=== PATIENT | female | born 1985 | race Caucasian/White ===

== ENCOUNTER 2016-10-13 23:36 | Emergency (ER) | payer OTHER ==
[~2016-10-13] VITALS: Ht 162.6 cm; Wt 70.0 kg
[~2016-10-13 23:36] MED LIST: CLON1 PO; LAMO100 PO; LEXA5SOL PO; METH40TA9 PO
[2016-10-13 23:46] VITALS: BP 143/77; PULSE 95; RESP 18; TEMP 98; O2SAT 95
--- NOTE | 2016-10-14 00:42 | PD ---
HPI Chief Complaint: Alcohol/Drug Intoxication Time Seen by Provider: 23:41 Travel History International Travel<30 days: No Contact w/Intl Traveler<30days: No Traveled to known affect area: No History of Present Illness HPI 31-year-old female arrives to the ER by EMS as a Sun affect. She drank alcohol tonight. She states she drinks about one to 2 beers most nights. She reports the nurse that she drinks every other night or so Today she states she drank "too many" drinks, Evidently [place] and two 12 oz beers. She denies drug abuse. At time of interview she has no specific medical complaint. patient states she was raking diet because everyone else does. [facility] Social History Alcohol Use: Yes Tobacco Use: Yes Allergies-Medications (Allergen,Severity, Reaction): Coded Allergies: No Known Allergies (Verified , 10/14/16) Reported Meds & Prescriptions Reported Meds & Active Scripts Active Reported Klonopin (Clonazepam) 1 Mg Tab 1 Mg PO DAILY Lexapro (Escitalopram Oxalate) 10 Mg Tab 10 Mg PO DAILY Lamictal (Lamotrigine) 100 Mg Tab 50 Mg PO BID Methadone (Methadone HCl) 40 Mg Tab 100 Mg PO DAILY Review of Systems Except as stated in HPI: all other systems reviewed are Neg Physical Exam Narrative GENERAL: 31-year-old female resting comfortably on bed, answers questions with clear speech SKIN: Focused skin assessment warm/dry. HEAD: Atraumatic. Normocephalic. EYES: Pupils equal and round. No scleral icterus. No injection or drainage. ENT: No nasal bleeding or discharge. Mucous membranes pink and moist. NECK: Trachea midline. No JVD. CARDIOVASCULAR: Regular rate and rhythm. No murmur appreciated. RESPIRATORY: No accessory muscle use. Clear to auscultation. Breath sounds equal bilaterally. GASTROINTESTINAL: Abdomen soft, non-tender, nondistended. Hepatic and splenic margins not palpable. MUSCULOSKELETAL: No obvious deformities. No clubbing. No cyanosis. No edema. NEUROLOGICAL: Awake and alert. No obvious cranial nerve deficits. Motor grossly within normal limits. Speech consistent with alcohol intoxication PSYCHIATRIC: Alcohol intoxication. Denies drug abuse Data Data Last Documented VS Vital Signs Date Time Temp Pulse Resp B/P Pulse Ox O2 Delivery O2 Flow Rate FiO2 10/14/16 01:11 99 Room Air 10/13/16 23:46 98.0 95 18 143/77 Vital signs review MDM Medical Decision Making Medical Screen Exam Complete: Yes Emergency Medical Condition: Yes Medical Record Reviewed: Yes Differential Diagnosis Alcohol intoxication, polysubstance abuse, toxic alcohol ingestion Narrative Course The patient will be observed here in the ER. When she was initially interviewed at about 1:15 AM she was speaking in clear sentences and had a good memory of the events of the evening. 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 Diagnosis Primary Impression: ALCOHOL USE, UNSPECIFIED WITH INTOXICATION, UNCOMPLICATED Referrals: [facility] day Additional Instructions: You have a choice when it comes to health care, and we are glad that you chose [facility]. Hopefully, we have met your expectations on today's visit. You are welcome to return to [facility] at any time, as we are committed to meeting the health care needs of our community. Med/Other Pt SpecificInfo: No Change to Meds Disposition: 01 DISCHARGE HOME Condition: Stable Herbert Brito MD Oct 14, 2016 00:42
[2016-10-14] MEDS ORDERED: METH40TA PO (00:58)
[2016-10-14] MEDS ORDERED: LEXA10TA PO (00:58)
[2016-10-14] MEDS ORDERED: CLON1 PO (00:58)
[2016-10-14] MEDS ORDERED: LAMO100 PO (00:58)
[2016-10-14 05:19] VITALS: BP 107/60; PULSE 88; RESP 18; TEMP 98.4; O2SAT 98
== END 2016-10-14 09:00 | disposition home or self-care (01) ==
LOC: NEPA 23:36
DX: F10.129 Alcohol abuse with intoxication, unspecified (principal); Z72.0 Tobacco use
CPT/HCPCS: 99284

== ENCOUNTER 2017-04-01 17:04 | Emergency (ER) | payer SELFPAY ==
[~2017-04-01] VITALS: Ht 152.4 cm; Wt 86.7 kg
[~2017-04-01 17:04] MED LIST changes: +LEXA10TA PO; -LEXA5SOL PO; +METH40TA PO; -METH40TA9 PO
[2017-04-01 17:12] VITALS: BP 161/97; PULSE 91; RESP 16; TEMP 98.9; O2SAT 98
--- NOTE | 2017-04-01 18:02 | PD ---
HPI Chief Complaint: Abdominal Pain Time Seen by Provider: 17:32 Travel History International Travel<30 days: No Contact w/Intl Traveler<30days: No Traveled to known affect area: No History of Present Illness HPI patient presented c/o 3 weeks worth of nonspecific complaints such as cough/ runny nose/body aches which have improved but still present and as per the patient "since i'm here, i might as well let you know" HOWEVER, the true new acute complaint for patient is a RLQ ABD PAIN, 02/22, NONRAD, no alleviating/ aggravating factors, denies fever/diarrhea/n/v/ pshx: 2 c sections and btl pmhx: denies all: nkda PFSH Past Medical History Anxiety: Yes (ptsd) Tetanus Vaccination: < 5 Years Influenza Vaccination: No ?: Not LMP: 03/25/17 Tubal Ligation: Yes Past Surgical History Section: Yes (x2) Social History Alcohol Use: Yes (occ) Tobacco Use: Yes (1ppd) Substance Use: No Allergies-Medications (Allergen,Severity, Reaction): Coded Allergies: No Known Allergies (Verified , 04/01/17) Reported Meds & Prescriptions Reported Meds & Active Scripts Active Reported Effexor XR 24 HR (Venlafaxine HCl) 150 Mg Cap 150 Mg PO DAILY Amitriptyline (Amitriptyline HCl) 100 Mg Tab 100 Mg PO HS Lamictal (Lamotrigine) 100 Mg Tab 100 Mg PO DAILY Review of Systems Except as stated in HPI: all other systems reviewed are Neg Gastrointestinal: Positive: Abdominal Pain Physical Exam Narrative GENERAL: SKIN: Warm and dry. HEAD: Atraumatic. Normocephalic. EYES: Pupils equal and round. No scleral icterus. No injection or drainage. ENT: No nasal bleeding or discharge. Mucous membranes pink and moist. NECK: Trachea midline. No JVD. CARDIOVASCULAR: Regular rate and rhythm. RESPIRATORY: No accessory muscle use. Clear to auscultation. Breath sounds equal bilaterally. GASTROINTESTINAL: Abdomen soft, mild ttp over rt adnexal and rt lower quadrant, nondistended. MUSCULOSKELETAL: Extremities without clubbing, cyanosis, or edema. No obvious deformities. NEUROLOGICAL: Awake and alert. No obvious cranial nerve deficits. Motor grossly within normal limits. Five out of 5 muscle strength in the arms and legs. Normal speech. PSYCHIATRIC: Appropriate mood and affect; insight and judgment normal. Data Data Last Documented VS Vital Signs Date Time Temp Pulse Resp B/P (MAP) Pulse Ox O2 Delivery O2 Flow Rate FiO2 04/01/17 18:27 76 18 129/85 (100) 98 Room Air 04/01/17 17:12 98.9 Orders Orders Complete Blood Count With Diff (04/01/17 17:36) Comprehensive Metabolic Panel (04/01/17 17:36) Lipase (04/01/17 17:36) Urinalysis - C+S If Indicated (04/01/17 17:36) Ct Abd/Pel W/O Iv Contrast (04/01/17 17:36) Iv Access Insert/Monitor (04/01/17 17:36) Ecg Monitoring (04/01/17 17:36) Oximetry (04/01/17 17:36) Ed Urine Pregnancytest Poc (04/01/17 17:36) Labs Laboratory Tests Test 04/01/17 17:50 White Blood Count 6.3 TH/MM3 Red Blood Count 4.33 MIL/MM3 Hemoglobin 12.7 GM/DL Hematocrit 37.7 % Mean Corpuscular Volume 87.0 FL Mean Corpuscular Hemoglobin 29.3 PG Mean Corpuscular Hemoglobin Concent 33.7 % Red Cell Distribution Width 13.1 % Platelet Count 241 TH/MM3 Mean Platelet Volume 8.5 FL Neutrophils (%) (Auto) 57.6 % Lymphocytes (%) (Auto) 33.3 % Monocytes (%) (Auto) 7.2 % Eosinophils (%) (Auto) 1.3 % Basophils (%) (Auto) 0.6 % Neutrophils # (Auto) 3.6 TH/MM3 Lymphocytes # (Auto) 2.1 TH/MM3 Monocytes # (Auto) 0.5 TH/MM3 Eosinophils # (Auto) 0.1 TH/MM3 Basophils # (Auto) 0.0 TH/MM3 CBC Comment DIFF FINAL Differential Comment Urine Collection Type CLEAN CATCH Urine Color YELLOW Urine Turbidity CLEAR Urine pH 6.0 Urine Specific [place] 1.012 Urine Protein NEG mg/dL Urine Glucose (UA) NEG mg/dL Urine Ketones NEG mg/dL Urine Occult Blood SMALL Urine Nitrite NEG Urine Bilirubin NEG Urine Leukocyte Esterase MOD Urine RBC 0-3 /hpf Urine WBC 0-2 /hpf Urine Squamous Epithelial Cells 0-5 /hpf Microscopic Urinalysis Comment CULT NOT INDICATED Blood Urea Nitrogen 7 MG/DL Creatinine 0.61 MG/DL Random Glucose 94 MG/DL Total Protein 7.4 GM/DL Albumin 3.2 GM/DL Calcium Level 8.6 MG/DL Alkaline Phosphatase 87 U/L Aspartate Amino Transf (AST/SGOT) 19 U/L Alanine Aminotransferase (ALT/SGPT) 36 U/L Total Bilirubin 0.2 MG/DL Sodium Level 141 MEQ/L Potassium Level 3.9 MEQ/L Chloride Level 109 MEQ/L Carbon Dioxide Level 24.9 MEQ/L Anion Gap 7 MEQ/L Estimat Glomerular Filtration Rate 113 ML/MIN Lipase 537 U/L [facility] Medical Decision Making Medical Screen Exam Complete: Yes Emergency Medical Condition: Yes Medical Record Reviewed: Yes Differential Diagnosis ovarian cyst v appy v ectopic preg v colitis v pancreatitis Narrative Course after thorough evaluation patient was not , no uti on ua, cbc wnl, lft' s normal, electrolytes nl, however minimal elevation of lipase suggestive of early pancreatitis, patients pain is controlled and tolerating po will d/c home...advised to return if uncontrolled pain or uncontrolled vomiting...patient voices understanding. Diagnosis Primary Impression: mild pancreatitis Patient Instructions: Full Liquid Diet (GEN), General Instructions, Pancreatitis (ED) Disposition: 01 DISCHARGE HOME Condition: Stable Kermit Tolbert MD Apr 01, 2017 18:02
[2017-04-01] MEDS ORDERED: LAMO100 PO (18:08)
[2017-04-01] MEDS ORDERED: AMIT100T2 PO (18:08)
[2017-04-01] MEDS ORDERED: EFFE150C PO (18:08)
[2017-04-01 18:10] LABS: BLOOD, URINE SMALL (NEG); GLUCOSE,URINE NEG (NEG); KETONE, URINE NEG (NEG); NITRITE,URINE NEG (NEG)
[2017-04-01 18:14] LABS: METHOD OF COLLECTION CLEAN CATCH; URINE COLOR YELLOW (YELLW/STRAW)
[2017-04-01 18:15] LABS: COMMENT (UR) CULT NOT INDICATED; CULTURE IF INDICATED CULT NOT INDICATED; RBC, URINE 0-3 /hpf (0-3); SQUAMOUS EPITHELIAL CELL URINE 0-5 /hpf (0-5); WBC, URINE 0-2 /hpf (0-5)
[2017-04-01 18:17] LABS: AUTOMATED NEUTROPHIL # 3.6 TH/MM3 (1.8-7.7); BASOPHIL % 0.6 % (0.0-2.0); EOSINOPHIL # 0.1 TH/MM3 (0-0.4); EOSINOPHIL % 1.3 % (0.0-4.0); HEMATOCRIT 37.7 % (35.0-46.0); HEMO FLAGS DIFF FINAL; LYMPH % 33.3 % (9.0-44.0); LYMPHOCYTE # 2.1 TH/MM3 (1.0-4.8); MEAN CORPUSCULAR HEMOGLOBIN 29.3 PG (27.0-34.0); MEAN CORPUSCULAR HGB CONC 33.7 % (32.0-36.0); MONO % 7.2 % (0.0-8.0); NEUT % 57.6 % (16.0-70.0); PLATELET COUNT 241 TH/MM3 (150-450); RED BLOOD COUNT 4.33 MIL/MM3 (4.00-5.30); RED CELL DISTRIBUTION WIDTH 13.1 % (11.6-17.2); WHITE BLOOD COUNT 6.3 TH/MM3 (4.0-11.0)
[2017-04-01 18:20] LABS: CHLORIDE 109 MEQ/L (98-107); POTASSIUM 3.9 MEQ/L (3.5-5.1); SODIUM (NA) 141 MEQ/L (136-145)
[2017-04-01 18:24] LABS: ANION GAP 7 MEQ/L (5-15); BICARBONATE 24.9 MEQ/L (21.0-32.0); BLOOD UREA NITROGEN 7 MG/DL (7-18)
[2017-04-01 18:26] LABS: ALT (GPT) 36 U/L (10-53); AST (GOT) 19 U/L (15-37); GLOMERULAR FILTRATION RATE 113 ML/MIN (>89)
[2017-04-01 18:27] VITALS: BP 129/85; PULSE 76; RESP 18; O2SAT 98
--- NOTE | 2017-04-01 18:27 | RADRPT ---
EXAM DATE/TIME: 04/01/2017 18:14 [place] COMPARISON: No previous studies available for comparison. INDICATIONS : Right lower quadrant pain with nausea. Evaluate for appendicitis. ORAL CONTRAST: No oral contrast ingested. RADIATION DOSE: 18.88 CTDIvol (mGy) MEDICAL HISTORY : None SURGICAL HISTORY : Tubal ligation. section. ENCOUNTER: Initial ACUITY: 2 days PAIN SCALE: 6/10 LOCATION: Right lower quadrant TECHNIQUE: Volumetric scanning of the abdomen and pelvis was performed. Using automated exposure control and ad justment of the mA and/or kV according to patient size, radiation dose was kept as low as reasonably achievable to obtain optimal diagnostic quality images. DICOM format image data is available electro nically for review and comparison. FINDINGS: LOWER LUNGS: The visualized lower lungs are clear. LIVER: Homogeneous density without lesion. Liver measures 21 cm craniocaudal. There is no dilation of the b iliary tree. No calcified gallstones. SPLEEN: Normal size without lesion. PANCREAS: Within normal limits. KIDNEYS: Normal in size and shape. There is no mass, stone, or hydronephrosis. ADRENAL GLANDS: Within normal limits. VASCULAR: There is no aortic aneurysm. BOWEL/MESENTERY: The stomach, small bowel, and colon demonstrate no acute abnormality. There is no free intraperitone al air or fluid. The appendix is well-visualized and appears normal. ABDOMINAL WALL: Within normal limits. RETROPERITONEUM: There is no lymphadenopathy. BLADDER: No wall thickening or mass. REPRODUCTIVE: Within normal limits. INGUINAL: There is no lymphadenopathy or hernia. MUSCULOSKELETAL: Mild joint space narrowing and subchondral sclerosis seen symmetrically of the sacroiliac joints. No erosions are demonstrated. CONCLUSION: 1. No appendicitis or other acute inflammatory changes. 2. Mild nonspecific hepatomegaly. 3. Apparent chronic sacroiliitis changes. Odin Grider MD on April 01, 2017 at 18:22 Board Certified Radiologist. This report was verified electronically.
[2017-04-01 18:28] LABS: TOTAL BILIRUBIN ADULT 0.2 MG/DL (0.2-1.0)
[2017-04-01 18:29] LABS: ALKALINE PHOSPHATASE 87 U/L (45-117)
[2017-04-01] MEDS ORDERED: ZOFR4TAB3 SL (19:04)
[2017-04-01] MEDS ORDERED: PERC10TA27 PO (19:04)
[2017-04-01 19:10] VITALS: BP 144/94; PULSE 80; RESP 18; O2SAT 99
== END 2017-04-01 19:29 | disposition home or self-care (01) ==
LOC: PHED 17:04
DX: K85.90 Acute pancreatitis without necrosis or infection, unspecified (principal); R10.31 Right lower quadrant pain; R05 Cough; M79.1 Myalgia; F17.200 Nicotine dependence, unspecified, uncomplicated; Z86.59 Personal history of other mental and behavioral disorders
CPT/HCPCS: 74176; 80053; 81001; 83690; 84703; 85025

== ENCOUNTER 2017-04-09 16:31 | Emergency (ER) | payer SELFPAY ==
[~2017-04-09] VITALS: Ht 152.4 cm; Wt 87.5 kg
[~2017-04-09 16:31] MED LIST changes: +AMIT100T2 PO; -CLON1 PO; +EFFE150C PO; -LEXA10TA PO; -METH40TA PO; +PERC10TA27 PO; +ZOFR4TAB3 SL
[2017-04-09 16:40] VITALS: PULSE 96; RESP 16; TEMP 98; O2SAT 97
[2017-04-09] MEDS ORDERED: SODIUM CHLOR 0.9% 1000 ML INJ 1,000 ML IV SCH (17:06)
[2017-04-09] MEDS ORDERED: SODIUM CHLORIDE 0.9% FLUSH 10 ML FLUSH IV FLUSH PRN (17:15)
[2017-04-09] MEDS ORDERED: ONDANSETRON HCL 4 MG/2 ML VIAL IVP ONE (17:15)
--- NOTE | 2017-04-09 17:46 | PD ---
HPI Chief Complaint: Abdominal Pain Time Seen by Provider: 16:53 Travel History International Travel<30 days: No Contact w/Intl Traveler<30days: No Traveled to known affect area: No History of Present Illness HPI 31 yo F c/o epigastric abdominal pain with radiation to back. Pt also with low back pain. + Nausea. No cp/sob. Pt denies alcohol. Pt denies drug abuse. She had similar pain about10 days ago, diagnosed as pancreatitis, which at that time was considered most likely 2/2 virus. + Subjective fever. PFSH Past Medical History Anxiety: Yes (ptsd) ?: Not LMP: 2 WEEKS AGO Tubal Ligation: Yes Past Surgical History Section: Yes (x2) Social History Alcohol Use: Yes (occ) Tobacco Use: Yes (1ppd) Substance Use: No Allergies-Medications (Allergen,Severity, Reaction): Coded Allergies: No Known Allergies (Verified , 04/09/17) Reported Meds & Prescriptions Reported Meds & Active Scripts Active Reported Effexor XR 24 HR (Venlafaxine HCl) 150 Mg Cap 150 Mg PO DAILY Amitriptyline (Amitriptyline HCl) 100 Mg Tab 100 Mg PO HS Lamictal (Lamotrigine) 100 Mg Tab 100 Mg PO DAILY Review of Systems Except as stated in HPI: all other systems reviewed are Neg Physical Exam Narrative GENERAL: 31 yo F, WNWD, no acute distress SKIN: Warm and dry. HEAD: Atraumatic. Normocephalic. EYES: Pupils equal and round. No scleral icterus. No injection or drainage. ENT: No nasal bleeding or discharge. Mucous membranes pink and moist. NECK: Trachea midline. No JVD. CARDIOVASCULAR: Regular rate and rhythm. RESPIRATORY: No accessory muscle use. Clear to auscultation. Breath sounds equal bilaterally. GASTROINTESTINAL: Soft. TTP epigastrium. TTP R lower flank and lower back. MUSCULOSKELETAL: Extremities without clubbing, cyanosis, or edema. No obvious deformities. NEUROLOGICAL: Awake and alert. No obvious cranial nerve deficits. Motor grossly within normal limits. Five out of 5 muscle strength in the arms and legs. Normal speech. PSYCHIATRIC: Appropriate mood and affect; insight and judgment normal. Data Data Last Documented VS Vital Signs Date Time Temp Pulse Resp B/P (MAP) Pulse Ox O2 Delivery O2 Flow Rate FiO2 04/09/17 17:55 97 04/09/17 16:40 98.0 96 16 VS reviewed Orders Orders Complete Blood Count With Diff (04/09/17 17:06) Comprehensive Metabolic Panel (04/09/17 17:06) Lipase (04/09/17 17:06) Urinalysis - C+S If Indicated (04/09/17 17:06) Iv Access Insert/Monitor (04/09/17 17:06) Ecg Monitoring (04/09/17 17:06) Oximetry (04/09/17 17:06) Ondansetron Inj (Zofran Inj) (04/09/17 17:15) Sodium Chlor 0.9% 1000 Ml Inj (Ns 1000 M (04/09/17 17:06) Sodium Chloride 0.9% Flush (Ns Flush) (04/09/17 17:15) Ed Urine Pregnancytest Poc (04/09/17 17:06) Hydromorphone Pf Inj (Dilaudid Pf Inj) (04/09/17 18:30) Metronidazole (Flagyl) (04/09/17 18:30) Labs Laboratory Tests Test 04/09/17 17:46 04/09/17 17:50 Urine Color YELLOW Urine Turbidity CLEAR Urine pH 6.5 Urine Specific [place] 1.008 Urine Protein NEG mg/dL Urine Glucose (UA) NEG mg/dL Urine Ketones NEG mg/dL Urine Occult Blood NEG Urine Nitrite NEG Urine Bilirubin NEG Urine Leukocyte Esterase NEG Urine RBC 0-3 /hpf Urine WBC 0-2 /hpf Urine Squamous Epithelial Cells 0-5 /hpf Urine Trichomonas PRESENT Microscopic Urinalysis Comment CULT NOT INDICATED White Blood Count 9.5 TH/MM3 Red Blood Count 4.44 MIL/MM3 Hemoglobin 13.3 GM/DL Hematocrit 38.8 % Mean Corpuscular Volume 87.2 FL Mean Corpuscular Hemoglobin 30.0 PG Mean Corpuscular Hemoglobin Concent 34.4 % Red Cell Distribution Width 13.0 % Platelet Count 211 TH/MM3 Mean Platelet Volume 8.4 FL Neutrophils (%) (Auto) 62.6 % Lymphocytes (%) (Auto) 28.8 % Monocytes (%) (Auto) 5.9 % Eosinophils (%) (Auto) 1.3 % Basophils (%) (Auto) 1.4 % Neutrophils # (Auto) 6.0 TH/MM3 Lymphocytes # (Auto) 2.7 TH/MM3 Monocytes # (Auto) 0.6 TH/MM3 Eosinophils # (Auto) 0.1 TH/MM3 Basophils # (Auto) 0.1 TH/MM3 CBC Comment DIFF FINAL Differential Comment Blood Urea Nitrogen 11 MG/DL Creatinine 0.68 MG/DL Random Glucose 81 MG/DL Total Protein 7.7 GM/DL Albumin 3.3 GM/DL Calcium Level 9.3 MG/DL Alkaline Phosphatase 94 U/L Aspartate Amino Transf (AST/SGOT) 17 U/L Alanine Aminotransferase (ALT/SGPT) 24 U/L Total Bilirubin 0.2 MG/DL Sodium Level 139 MEQ/L Potassium Level 4.4 MEQ/L Chloride Level 105 MEQ/L Carbon Dioxide Level 25.4 MEQ/L Anion Gap 9 MEQ/L Estimat Glomerular Filtration Rate 100 ML/MIN Lipase 321 U/L [facility] Medical Decision Making Medical Screen Exam Complete: Yes Emergency Medical Condition: Yes Medical Record Reviewed: Yes Differential Diagnosis Constipation, Gastritis, Acute Cholecystitis, Biliary Colic, Pancreatitis, K[place] , Hepatitis, Bowel Obstruction, Cystitis, Mesenteric Ischemia, AAA, Appendicitis , Renal Stone/Hydronephrosis, GERD, perforated viscous Narrative Course CBC & BMP Diagram 04/09/17 17:50 Total Protein 7.7, Albumin 3.3 L, Calcium Level 9.3, Alkaline Phosphatase 94, Aspartate Amino Transf (AST/SGOT) 17, Alanine Aminotransferase (ALT/SGPT) 24, Total Bilirubin 0.2 Lipase normal UA: trichomoniasis present 2g Flagyl here [place] precautions discussed Return precautions discussed Diagnosis Primary Impression: Trichomoniasis, unspecified Additional Instructions: You have a choice when it comes to health care, and we are glad that you chose [facility]. Hopefully, we have met your expectations on today's visit. You are welcome to return to [facility] at any time, as we are committed to meeting the health care needs of our community. Med/Other Pt SpecificInfo: No Change to Meds Disposition: 01 DISCHARGE HOME Condition: Stable Herbert Brito MD Apr 09, 2017 17:46
[2017-04-09 17:55] VITALS: O2SAT 97
[2017-04-09 17:56] LABS: BLOOD, URINE NEG (NEG); GLUCOSE,URINE NEG (NEG); KETONE, URINE NEG (NEG); NITRITE,URINE NEG (NEG); PH, URINE 6.5 (5.0-8.5)
[2017-04-09 17:57] LABS: BASOPHIL # 0.1 TH/MM3 (0-0.2); BASOPHIL % 1.4 % (0.0-2.0); EOSINOPHIL # 0.1 TH/MM3 (0-0.4); EOSINOPHIL % 1.3 % (0.0-4.0); HEMATOCRIT 38.8 % (35.0-46.0); HEMO FLAGS DIFF FINAL; LYMPH % 28.8 % (9.0-44.0); LYMPHOCYTE # 2.7 TH/MM3 (1.0-4.8); MEAN CELL VOLUME 87.2 FL (80.0-100.0); MEAN CORPUSCULAR HGB CONC 34.4 % (32.0-36.0); MONO % 5.9 % (0.0-8.0); NEUT % 62.6 % (16.0-70.0); PLATELET COUNT 211 TH/MM3 (150-450); RED BLOOD COUNT 4.44 MIL/MM3 (4.00-5.30); WHITE BLOOD COUNT 9.5 TH/MM3 (4.0-11.0)
[2017-04-09 18:03] LABS: COMMENT (UR) CULT NOT INDICATED; CULTURE IF INDICATED CULT NOT INDICATED; RBC, URINE 0-3 /hpf (0-3); SQUAMOUS EPITHELIAL CELL URINE 0-5 /hpf (0-5); URINE COLOR YELLOW (YELLW/STRAW); WBC, URINE 0-2 /hpf (0-5)
[2017-04-09 18:07] LABS: CHLORIDE 105 MEQ/L (98-107); POTASSIUM 4.4 MEQ/L (3.5-5.1); SODIUM (NA) 139 MEQ/L (136-145)
[2017-04-09 18:11] LABS: ANION GAP 9 MEQ/L (5-15); BICARBONATE 25.4 MEQ/L (21.0-32.0); BLOOD UREA NITROGEN 11 MG/DL (7-18)
[2017-04-09 18:13] LABS: ALT (GPT) 24 U/L (10-53)
[2017-04-09 18:14] LABS: AST (GOT) 17 U/L (15-37); GLOMERULAR FILTRATION RATE 100 ML/MIN (>89)
[2017-04-09 18:15] LABS: TOTAL BILIRUBIN ADULT 0.2 MG/DL (0.2-1.0)
[2017-04-09 18:16] LABS: ALKALINE PHOSPHATASE 94 U/L (45-117)
[2017-04-09] MEDS ORDERED: metroNIDAZOLE 500 MG TAB PO ONE (18:30)
[2017-04-09] MEDS ORDERED: HYDROmorphone HCL PF 1 MG/ML VIAL IV PUSH ONE (18:30)
[2017-04-09 19:02] VITALS: BP 140/88
[2017-04-10] MEDS ORDERED: DICY10 PO (18:26)
[2017-04-10] MEDS ORDERED: PANT20 PO (18:26)
[2017-04-10] MEDS ORDERED: DOXY100C PO (18:26)
== END 2017-04-09 19:08 | disposition home or self-care (01) ==
LOC: PHED 16:31
DX: A59.9 Trichomoniasis, unspecified (principal); F17.200 Nicotine dependence, unspecified, uncomplicated
CPT/HCPCS: 80053; 81001; 83690; 84703; 85025; 96361; 96374; 96375; 99284; J1170; J2405; J7030

== ENCOUNTER 2017-04-10 17:33 | Emergency (ER) | payer SELFPAY ==
[~2017-04-10] VITALS: Ht 152.4 cm; Wt 87.6 kg
[~2017-04-10 17:33] MED LIST changes: -PERC10TA27 PO; -ZOFR4TAB3 SL
[2017-04-10 17:35] VITALS: BP 135/101; PULSE 101; RESP 16; TEMP 98.7; O2SAT 98
[2017-04-10] MEDS ORDERED: DOXY100C PO (18:26)
[2017-04-10] MEDS ORDERED: PANT20 PO (18:26)
[2017-04-10] MEDS ORDERED: DICY10 PO (18:26)
--- NOTE | 2017-04-10 18:26 | PD ---
HPI Chief Complaint: Abdominal Pain Time Seen by Provider: 18:07 Travel History International Travel<30 days: No Contact w/Intl Traveler<30days: No Traveled to known affect area: No History of Present Illness HPI 31-year-old female complains of abdominal pain. Patient states that she has persistent abdominal pain for the past 2 weeks. Patient was seen in emergency room on April 01 and had blood tests and CT scan abdomen and pelvis done at that time. CT scan abdomen and it was negative for acute pathology. CBC within normal limit. Lipase 537. UA was negative. Patient again was seen yesterday in emergency room for abdominal pain. CBC CMP within normal limits. Lipase normalize. UA was positive for Trichomonas. Patient was given Flagyl 2 g by mouth prior to discharge. Patient states that she had persistent pain cramping pain and sharp pain on the right upper quadrant of the abdomen. Patient denies any pain radiation. Patient denies any fever chills. Patient denies any dysuria or frequency. Patient denies any vaginal discharge or bleeding. Patient states that she had persistent pain on the right upper quadrant abdomen since discharge. Patient does not have any local physician for follow-up. Patient denies any nausea vomiting diarrhea. PFSH Past Medical History Anxiety: Yes (ptsd) Diminished Hearing: No Pancreatitis: Yes Influenza Vaccination: No ?: Not LMP: 2 WEEKS AGO Tubal Ligation: Yes Past Surgical History Section: Yes (x2) Social History Alcohol Use: No (denies) Tobacco Use: Yes (1ppd) Substance Use: No Allergies-Medications (Allergen,Severity, Reaction): Coded Allergies: No Known Allergies (Verified , 04/10/17) Reported Meds & Prescriptions Reported Meds & Active Scripts Active Reported Effexor XR 24 HR (Venlafaxine HCl) 150 Mg Cap 150 Mg PO DAILY Amitriptyline (Amitriptyline HCl) 100 Mg Tab 100 Mg PO HS Lamictal (Lamotrigine) 100 Mg Tab 100 Mg PO DAILY Review of Systems General / Constitutional: No: Fever Eyes: No: Visual changes HENT: No: Headaches Cardiovascular: No: Chest Pain or Discomfort Respiratory: No: Shortness of Breath Gastrointestinal: Positive: Abdominal Pain Genitourinary: No: Dysuria Musculoskeletal: No: Pain Skin: No Rash Neurologic: No: Weakness Psychiatric: No: Depression Endocrine: No: Polydipsia Hematologic/Lymphatic: No: Easy Bruising Physical Exam Narrative GENERAL: Well-nourished, well-developed patient. SKIN: Focused skin assessment warm/dry. HEAD: Normocephalic. EYES: No scleral icterus. No injection or drainage. NECK: Supple, trachea midline. No JVD or lymphadenopathy. CARDIOVASCULAR: Regular rate and rhythm without murmurs, gallops, or rubs. RESPIRATORY: Breath sounds equal bilaterally. No accessory muscle use. GASTROINTESTINAL: Abdomen soft, nondistended. Patient has mild tenderness on palpation epigastric, right upper quadrant and right mid abdomen and right lower quadrant the abdomen. No rebound tenderness. No mass. MUSCULOSKELETAL: No cyanosis, or edema. BACK: Nontender without obvious deformity. No CVA tenderness. Neurologic exam normal. Data Data Last Documented VS Vital Signs Date Time Temp Pulse Resp B/P (MAP) Pulse Ox O2 Delivery O2 Flow Rate FiO2 04/10/17 17:35 98.7 101 16 135/101 (112) 98 MDM Medical Decision Making Medical Screen Exam Complete: Yes Emergency Medical Condition: Yes Differential Diagnosis Differential diagnosis including gastritis, PUD, pancreatitis, cholecystitis, colitis, UTI, pyelonephritis, nephrolithiasis, cervicitis, PID. Narrative Course 31-year-old female with persistent abdominal pain. Workup has been negative so far except mild elevation of lipase 2 weeks ago. Patient was treated for Trichomonas yesterday in the ED. Diagnosis Primary Impression: Abdominal pain Qualified Codes: R10.11 - Right upper quadrant pain Patient Instructions: General Instructions Additional Instructions: Take medications as directed. Follow-up with local physician and GI specialist. Return if persistent problem or worse. Med/Other Pt SpecificInfo: Prescription(s) given Scripts Dicyclomine (Bentyl) 10 Mg Cap 10 MG PO TID Y for PAIN SCALE 1 TO 10, #21 CAP 0 Refills Prov: Malik Grove MD 04/10/17 Pantoprazole (Protonix) 20 Mg Tab 20 MG PO DAILY for Reflux, #30 TAB 0 Refills Prov: Malik Grove MD 04/10/17 Doxycycline Hyclate (Doxycycline Hyclate) 100 Mg Cap 100 MG PO BID for Infection, #20 CAP 0 Refills Prov: Malik Grove MD 04/10/17 Disposition: 01 DISCHARGE HOME Condition: Stable Malik Grove MD Apr 10, 2017 18:26
== END 2017-04-10 18:39 | disposition home or self-care (01) ==
LOC: PHED 17:33
DX: R10.11 Right upper quadrant pain (principal); F17.200 Nicotine dependence, unspecified, uncomplicated; Z86.59 Personal history of other mental and behavioral disorders; Z87.19 Personal history of other diseases of the digestive system
CPT/HCPCS: 99284

== ENCOUNTER 2017-04-16 20:07 | Emergency (ER) | payer SELFPAY ==
[~2017-04-16] VITALS: Ht 160 cm; Wt 81.0 kg
[~2017-04-16 20:07] MED LIST changes: +DICY10 PO; +DOXY100C PO; +PANT20 PO
[2017-04-16 20:09] VITALS: BP 159/94; PULSE 101; RESP 16; TEMP 97.7; O2SAT 96
--- NOTE | 2017-04-16 22:42 | PD ---
HPI Chief Complaint: Anxiety Time Seen by Provider: 22:34 Travel History International Travel<30 days: No Contact w/Intl Traveler<30days: No Traveled to known affect area: No History of Present Illness HPI 31-year-old female with history of PTSD presents for evaluation of anxiety. For the past 3 days she has had increased anxiety and difficulty sleeping. She reports that she is currently prescribed Effexor, lamotrigine and amitriptyline by her psychiatrist Dr. Gomes that [facility]. She reports the last month she was on Risperdal briefly but she was having tardive dyskinesia and this was discontinued. She is here today in an effort to get some help with her anxiety and difficulty sleeping. She denies any suicidal or homicidal ideation, auditory or visual hallucination, drug abuse. She has no other medical complaints at this time. PFSH Past Medical History Anxiety: Yes (ptsd) Diminished Hearing: No Immunizations Current: Yes Pancreatitis: Yes Tetanus Vaccination: < 5 Years Influenza Vaccination: No ?: Unknown Tubal Ligation: Yes Past Surgical History Section: Yes (x2) Social History Alcohol Use: No (denies) Tobacco Use: Yes (1ppd) Substance Use: No Allergies-Medications (Allergen,Severity, Reaction): Coded Allergies: No Known Allergies (Verified , 04/16/17) Reported Meds & Prescriptions Reported Meds & Active Scripts Active Bentyl (Dicyclomine HCl) 10 Mg Cap 10 Mg PO TID PRN Protonix (Pantoprazole Sodium) 20 Mg Tab 20 Mg PO DAILY Doxycycline Hyclate 100 Mg Cap 100 Mg PO BID Reported Effexor XR 24 HR (Venlafaxine HCl) 150 Mg Cap 150 Mg PO DAILY Amitriptyline (Amitriptyline HCl) 100 Mg Tab 100 Mg PO HS Lamictal (Lamotrigine) 100 Mg Tab 100 Mg PO DAILY Review of Systems Except as stated in HPI: all other systems reviewed are Neg Physical Exam Narrative GENERAL: Well-developed well-nourished female in no acute distress answering questions appropriately. Her vital signs have been reviewed. SKIN: Warm and dry. HEAD: Atraumatic. Normocephalic. EYES: Pupils equal and round. No scleral icterus. No injection or drainage. ENT: No nasal bleeding or discharge. Mucous membranes pink and moist. NECK: Trachea midline. No JVD. CARDIOVASCULAR: Regular rate and rhythm. No murmur appreciated. RESPIRATORY: No accessory muscle use. Clear to auscultation. Breath sounds equal bilaterally. GASTROINTESTINAL: Abdomen soft, non-tender, nondistended. Hepatic and splenic margins not palpable. MUSCULOSKELETAL: No obvious deformities. No clubbing. No cyanosis. No edema. NEUROLOGICAL: Awake and alert. No obvious cranial nerve deficits. Motor grossly within normal limits. Normal speech. PSYCHIATRIC: Appropriate mood and affect; insight and judgment normal. Data Data Last Documented VS Vital Signs Date Time Temp Pulse Resp B/P (MAP) Pulse Ox O2 Delivery O2 Flow Rate FiO2 04/16/17 20:09 97.7 101 16 159/94 (115) 96 Room Air Orders Orders Hydroxyzine Hcl Inj (Vistaril Inj) (04/16/17 22:45) [facility] Medical Decision Making Medical Screen Exam Complete: Yes Emergency Medical Condition: Yes Medical Record Reviewed: Yes Differential Diagnosis Insomnia, anxiety, adjustment reaction, PTSD Narrative Course 31-year-old female history of PTSD presents with difficulty sleeping and anxiety for the past 3 days. The patient reports that she is able to get a follow-up appointment with Dr. Crane at [facility] in the morning and she is primarily here requesting something to help her sleep. The plan at this time would be to provide the patient a dose of Vistaril and have her follow-up with her psychiatrist in the morning. She is stable for discharge. Diagnosis Primary Impression: Anxiety Referrals: [facility] Additional Instructions: Follow-up with your psychiatrist tomorrow as discussed. Return for any acutely new or worsening symptoms. Med/Other Pt SpecificInfo: No Change to Meds Disposition: 01 DISCHARGE HOME Condition: Stable Dieter Rendon Apr 16, 2017 22:42
[2017-04-16] MEDS ORDERED: hydrOXYzine HCL 50 MG/ML VIAL IM ONE (22:45)
[2017-04-16 22:57] VITALS: BP 149/79; TEMP 98.1
== END 2017-04-16 22:57 | disposition home or self-care (01) ==
LOC: NEPD 20:07
DX: F43.10 Post-traumatic stress disorder, unspecified (principal); K85.90 Acute pancreatitis without necrosis or infection, unspecified; F17.200 Nicotine dependence, unspecified, uncomplicated; Z79.899 Other long term (current) drug therapy
CPT/HCPCS: 96372; 99284; J3410

== ENCOUNTER 2017-04-17 14:50 | Emergency (ER) | payer OTHER ==
[~2017-04-17] VITALS: Ht 152.4 cm; Wt 81.5 kg
[2017-04-17 15:14] VITALS: BP 135/74; PULSE 90; RESP 16; TEMP 98.9; O2SAT 99
[2017-04-17 15:44] LABS: AUTOMATED NEUTROPHIL # 4.7 TH/MM3 (1.8-7.7); BASOPHIL % 0.6 % (0.0-2.0); EOSINOPHIL # 0.1 TH/MM3 (0-0.4); EOSINOPHIL % 1.5 % (0.0-4.0); HEMATOCRIT 37.4 % (35.0-46.0); HEMO FLAGS DIFF FINAL; LYMPH % 30.2 % (9.0-44.0); LYMPHOCYTE # 2.3 TH/MM3 (1.0-4.8); MEAN CELL VOLUME 87.4 FL (80.0-100.0); MEAN CORPUSCULAR HEMOGLOBIN 29.8 PG (27.0-34.0); MEAN CORPUSCULAR HGB CONC 34.1 % (32.0-36.0); MONO % 6.7 % (0.0-8.0); PLATELET COUNT 239 TH/MM3 (150-450); RED BLOOD COUNT 4.28 MIL/MM3 (4.00-5.30); RED CELL DISTRIBUTION WIDTH 14.1 % (11.6-17.2); WHITE BLOOD COUNT 7.7 TH/MM3 (4.0-11.0)
[2017-04-17 15:49] LABS: BLOOD, URINE NEG (NEG); COMMENT (UR) CULT NOT INDICATED; CULTURE IF INDICATED CULT NOT INDICATED; GLUCOSE,URINE NEG (NEG); KETONE, URINE NEG (NEG); NITRITE,URINE NEG (NEG); PH, URINE 5.5 (5.0-8.5); SQUAMOUS EPITHELIAL CELL URINE 1 /hpf (0-5); URINE COLOR YELLOW (YELLW/STRAW)
[2017-04-17 16:09] LABS: ALT (GPT) 23 U/L (10-53); ANION GAP 7 MEQ/L (5-15); AST (GOT) 14 U/L (15-37); BICARBONATE 24.9 MEQ/L (21.0-32.0); BLOOD UREA NITROGEN 9 MG/DL (7-18); CHLORIDE 107 MEQ/L (98-107); GLOMERULAR FILTRATION RATE 86 ML/MIN (>89); POTASSIUM 4.1 MEQ/L (3.5-5.1); SODIUM (NA) 139 MEQ/L (136-145)
[2017-04-17 16:11] LABS: ALKALINE PHOSPHATASE 94 U/L (45-117); TOTAL BILIRUBIN ADULT 0.3 MG/DL (0.2-1.0)
--- NOTE | 2017-04-17 16:14 | PD ---
HPI Chief Complaint: Psychiatric Symptoms Time Seen by Provider: 15:41 Travel History International Travel<30 days: No Contact w/Intl Traveler<30days: No Traveled to known affect area: No History of Present Illness HPI 31-year-old female that presents to the ED for evaluation of psych. Patient was Lianna acted by her psychiatrist. Patient was seen at [facility] today and was Lianna cobb. Patient comes here because his been suicidal and thinking about overdosing. She has a history of PTSD and was seen here yesterday for anxiety. Per patient she wanted to go see her doctor instead of staying here overnight. She denies any drug abuse or alcohol abuse recently. No allergies to medication. No chest pain or shortness of breath. No fevers chills or sweats. No urinary or bowel movement issues. Patient states that she is compliant with her medications but she believes that they're not working for her. Patient states that the symptoms have been ongoing for a couple days and have worsened secondary to stressors. PFSH Past Medical History Anxiety: Yes (ptsd) Diminished Hearing: No Immunizations Current: Yes Pancreatitis: Yes Tetanus Vaccination: < 5 Years ?: Not Tubal Ligation: Yes Past Surgical History Section: Yes (x2) Social History Alcohol Use: No (denies) Tobacco Use: Yes (1ppd) Substance Use: No Allergies-Medications (Allergen,Severity, Reaction): Coded Allergies: No Known Allergies (Verified , 04/17/17) Reported Meds & Prescriptions Reported Meds & Active Scripts Active Bentyl (Dicyclomine HCl) 10 Mg Cap 10 Mg PO TID PRN Protonix (Pantoprazole Sodium) 20 Mg Tab 20 Mg PO DAILY Doxycycline Hyclate 100 Mg Cap 100 Mg PO BID Reported Effexor XR 24 HR (Venlafaxine HCl) 150 Mg Cap 150 Mg PO DAILY Amitriptyline (Amitriptyline HCl) 100 Mg Tab 100 Mg PO HS Lamictal (Lamotrigine) 100 Mg Tab 100 Mg PO DAILY Review of Systems Except as stated in HPI: all other systems reviewed are Neg Physical Exam Narrative GENERAL: SKIN: Warm and dry. HEAD: Atraumatic. Normocephalic. EYES: Pupils equal and round. No scleral icterus. No injection or drainage. ENT: No nasal bleeding or discharge. Mucous membranes pink and moist. Tongue is midline. No uvula deviation. NECK: Trachea midline. No JVD. CARDIOVASCULAR: Regular rate and rhythm. RESPIRATORY: No accessory muscle use. Clear to auscultation. Breath sounds equal bilaterally. GASTROINTESTINAL: Abdomen soft, non-tender, nondistended. Hepatic and splenic margins not palpable. MUSCULOSKELETAL: Extremities without clubbing, cyanosis, or edema. No obvious deformities. Full range of motion of the upper and lower extremities bilaterally. 2+ pulses bilaterally. NEUROLOGICAL: Awake and alert. No obvious cranial nerve deficits. Motor grossly within normal limits. Five out of 5 muscle strength in the arms and legs. Normal speech. PSYCHIATRIC: Anxious mood and affect; insight and judgment normal. Data Data Last Documented VS Vital Signs Date Time Temp Pulse Resp B/P (MAP) Pulse Ox O2 Delivery O2 Flow Rate FiO2 04/17/17 15:14 98.9 90 16 135/74 (94) 99 Orders Orders Complete Blood Count With Diff (04/17/17 15:25) Comprehensive Metabolic Panel (04/17/17 15:25) Urinalysis - C+S If Indicated (04/17/17 15:25) Psych Screen (04/17/17 15:25) Drug Screen, Random Urine (04/17/17 15:25) Labs Laboratory Tests Test 04/17/17 15:30 White Blood Count 7.7 TH/MM3 Red Blood Count 4.28 MIL/MM3 Hemoglobin 12.8 GM/DL Hematocrit 37.4 % Mean Corpuscular Volume 87.4 FL Mean Corpuscular Hemoglobin 29.8 PG Mean Corpuscular Hemoglobin Concent 34.1 % Red Cell Distribution Width 14.1 % Platelet Count 239 TH/MM3 Mean Platelet Volume 8.6 FL Neutrophils (%) (Auto) 61.0 % Lymphocytes (%) (Auto) 30.2 % Monocytes (%) (Auto) 6.7 % Eosinophils (%) (Auto) 1.5 % Basophils (%) (Auto) 0.6 % Neutrophils # (Auto) 4.7 TH/MM3 Lymphocytes # (Auto) 2.3 TH/MM3 Monocytes # (Auto) 0.5 TH/MM3 Eosinophils # (Auto) 0.1 TH/MM3 Basophils # (Auto) 0.0 TH/MM3 CBC Comment DIFF FINAL Differential Comment Urine Color YELLOW Urine Turbidity CLEAR Urine pH 5.5 Urine Specific [place] 1.018 Urine Protein NEG mg/dL Urine Glucose (UA) NEG mg/dL Urine Ketones NEG mg/dL Urine Occult Blood NEG Urine Nitrite NEG Urine Bilirubin NEG Urine Urobilinogen LESS THAN 2.0 MG/DL Urine Leukocyte Esterase NEG Urine RBC 1 /hpf Urine Squamous Epithelial Cells 1 /hpf Microscopic Urinalysis Comment CULT NOT INDICATED Blood Urea Nitrogen 9 MG/DL Creatinine 0.77 MG/DL Random Glucose 88 MG/DL Albumin 3.4 GM/DL Calcium Level 8.8 MG/DL Aspartate Amino Transf (AST/SGOT) 14 U/L Alanine Aminotransferase (ALT/SGPT) 23 U/L Sodium Level 139 MEQ/L Potassium Level 4.1 MEQ/L Chloride Level 107 MEQ/L Carbon Dioxide Level 24.9 MEQ/L Anion Gap 7 MEQ/L Estimat Glomerular Filtration Rate 86 ML/MIN Urine Opiates Screen NEG Urine Barbiturates Screen NEG Urine Amphetamines Screen NEG Urine Benzodiazepines Screen POS Urine Cocaine Screen POS Urine Cannabinoids Screen NEG MDM Medical Decision Making Medical Screen Exam Complete: Yes Emergency Medical Condition: Yes Medical Record Reviewed: Yes Interpretation(s) CBC & BMP Diagram 04/17/17 15:30 Total Protein 7.7, Albumin 3.4, Calcium Level 8.8, Alkaline Phosphatase 94, Aspartate Amino Transf (AST/SGOT) 14 L, Alanine Aminotransferase (ALT/SGPT) 23, Total Bilirubin 0.3 tox positive for cocaine and benzos Differential Diagnosis Depression versus suicidal ideation versus anxiety versus adjustment disorder versus mood disorder versus bipolar disorder versus schizophrenia versus paranoid disorder versus psychosis versus substance abuse versus alcohol abuse versus alcohol induced psychosis versus homicidality addition versus cutting versus personality disorder Narrative Course 31-year-old female that presents to the ED for evaluation of psych. Patient was properly examined and was found to have signs and symptoms consistent with psychiatric illness. No sign of acute medical distress. Labs were drawn. Patient was medically cleared. Okay to be seen by psych. Mental health screening was discussed with the patient. Diagnosis Primary Impression: PTSD (post-traumatic stress disorder) Ajith Montalvo Apr 17, 2017 16:14
[2017-04-17 18:02] VITALS: BP 125/68; PULSE 78; RESP 20; O2SAT 99
[2017-04-17 19:29] VITALS: BP 137/77; PULSE 101; RESP 18; TEMP 97.6; O2SAT 98
[2017-04-17 22:05] VITALS: BP 138/82; PULSE 62; RESP 19; O2SAT 96
[2017-04-18 02:13] VITALS: BP 157/93; PULSE 85; RESP 19; O2SAT 96
[2017-04-18 06:15] VITALS: BP 156/84; PULSE 80; RESP 18; O2SAT 97
--- NOTE | 2017-04-18 11:57 | PD ---
Physical Exam Time Seen by Provider: 11:56 SILVANO Simeon has evaluated the patient, listed Dsouza act and the patient will be discharged home. Data Data Last Documented VS Vital Signs Date Time Temp Pulse Resp B/P (MAP) Pulse Ox O2 Delivery O2 Flow Rate FiO2 04/18/17 06:15 80 18 156/84 (108) 97 Room Air 04/17/17 19:29 97.6 Orders Orders Complete Blood Count With Diff (04/17/17 15:25) Comprehensive Metabolic Panel (04/17/17 15:25) Urinalysis - C+S If Indicated (04/17/17 15:25) Psych Screen (04/17/17 15:25) Drug Screen, Random Urine (04/17/17 15:25) Diet Regular Basic (04/17/17 Dinner) Diet Regular Basic (04/18/17 Breakfast) Diet Regular Basic (04/18/17 Lunch) Labs Laboratory Tests Test 04/17/17 15:30 White Blood Count 7.7 TH/MM3 Red Blood Count 4.28 MIL/MM3 Hemoglobin 12.8 GM/DL Hematocrit 37.4 % Mean Corpuscular Volume 87.4 FL Mean Corpuscular Hemoglobin 29.8 PG Mean Corpuscular Hemoglobin Concent 34.1 % Red Cell Distribution Width 14.1 % Platelet Count 239 TH/MM3 Mean Platelet Volume 8.6 FL Neutrophils (%) (Auto) 61.0 % Lymphocytes (%) (Auto) 30.2 % Monocytes (%) (Auto) 6.7 % Eosinophils (%) (Auto) 1.5 % Basophils (%) (Auto) 0.6 % Neutrophils # (Auto) 4.7 TH/MM3 Lymphocytes # (Auto) 2.3 TH/MM3 Monocytes # (Auto) 0.5 TH/MM3 Eosinophils # (Auto) 0.1 TH/MM3 Basophils # (Auto) 0.0 TH/MM3 CBC Comment DIFF FINAL Differential Comment Urine Color YELLOW Urine Turbidity CLEAR Urine pH 5.5 Urine Specific [place] 1.018 Urine Protein NEG mg/dL Urine Glucose (UA) NEG mg/dL Urine Ketones NEG mg/dL Urine Occult Blood NEG Urine Nitrite NEG Urine Bilirubin NEG Urine Urobilinogen LESS THAN 2.0 MG/DL Urine Leukocyte Esterase NEG Urine RBC 1 /hpf Urine Squamous Epithelial Cells 1 /hpf Microscopic Urinalysis Comment CULT NOT INDICATED Blood Urea Nitrogen 9 MG/DL Creatinine 0.77 MG/DL Random Glucose 88 MG/DL Total Protein 7.7 GM/DL Albumin 3.4 GM/DL Calcium Level 8.8 MG/DL Alkaline Phosphatase 94 U/L Aspartate Amino Transf (AST/SGOT) 14 U/L Alanine Aminotransferase (ALT/SGPT) 23 U/L Total Bilirubin 0.3 MG/DL Sodium Level 139 MEQ/L Potassium Level 4.1 MEQ/L Chloride Level 107 MEQ/L Carbon Dioxide Level 24.9 MEQ/L Anion Gap 7 MEQ/L Estimat Glomerular Filtration Rate 86 ML/MIN Urine Opiates Screen NEG Urine Barbiturates Screen NEG Urine Amphetamines Screen NEG Urine Benzodiazepines Screen POS Urine Cocaine Screen POS Urine Cannabinoids Screen NEG MDM Supervised Visit with ARNOLD: No Narrative Course SILVANO Jacobs has evaluated the patient, lifted the Dsouza act and the patient will be discharged home. Patient contracts safety. Denies suicidal or homicidal ideations. Patient will be provided community resource packet to / [facility] for follow-up. Patient sees psychiatry and will follow up outpatient. Has friends and family for support. Patient is medically cleared for discharge. Diagnosis Primary Impression: PTSD (post-traumatic stress disorder) Referrals: [facility] (Out patient) call for appointment Primary Care Physician [facility] Patient Instructions: General Instructions, Post Traumatic Stress Disorder (ED) , Polysubstance Abuse (ED) Departure Forms: Tests/Procedures Additional Instruction: Contract safety to your self and others Follow-up with psychiatry Follow-up with primary care provider Follow-up with Kof[facility] Return to the emergency department immediately with worsening of symptoms Med/Other Pt SpecificInfo: No Meds Exist/No RX given Disposition: 01 DISCHARGE HOME Condition: Stable Kelsey Chambers Apr 18, 2017 11:57
--- NOTE | 2017-04-18 11:58 | PD ---
History of Present Illness Chief Complaint: Psychiatric Symptoms Time Seen by Provider: 11:30 Travel History International Travel<30 Days: No Contact w/Intl Traveler<30days: No Known affected area: No Legal Status Legal Status: Dsouza Act Dsouza Act Signed By: Lianna Act Comment: [facility] SILVANO Camp History of Present Illness: History of Present Illness HPI 31-year-old female with history of PTSD and substance use disorder who presents to the ED under Dsouza act initiated by SILVANO Camp from [facility] for psychiatric evaluation. The Dsouza act alleges that she was suicidal and was thinking of overdosing on her medication. She did not make any attempts to harm herself. Patient states that she went to [facility] for a medication evaluation and reported that she felt the Latuda she was taking was making her feel worse. She was asked if she ever felt like harming herself and what would she do. She was placed under a BA after she responded that " if I was going to do something I would take pills". She also reports that she has been feeling more paranoid and anxious. The patient was monitored in [facility] and she presented no behavioral concerns and no suicidality. EMR reviewed. She was seen in ED in september 2016 under a Hernandez act. Current toxicology is positive for benzos as well as cocaine although she denies regular use of cocaine. She was seen in ED yesterday but chose to go home with prescription for Vistaril. She is alert, oriented, calm and cooperative. speech is clear and logical. No psychosis and no sherron. She denies suicidal or homicidal ideation. States " I have 2 amazing children and they deserve to have a mother". She reports intermittent auditory hallucinations that tell her that tell her people want to hurt her as well as call her name when she is sleeping. She reports medication compliant. No significant depressive symptoms. PFSH Past Medical History Anxiety: Yes (ptsd) Diminished Hearing: No Immunizations Current: Yes Pancreatitis: Yes Tetanus Vaccination: < 5 Years ?: Not Tubal Ligation: Yes Past Surgical History Section: Yes (x2) Psychiatric History Psychiatric History Hx Psychiatric Treatment: CURRENTLY BEING TREATED AT [facility] FOR [facility]IPOLAR AND PTSD. NO INPATIENT HISTORY History of Inpatient Treatment: No Guns or firearms in home: No Social History Single, lives with her mother and her 2 children. works cleaning rental properties. Hx Alcohol Use: No (denies) Hx Tobacco Use: Yes (1ppd) Hx Substance Use: Yes Substance Use Type: Cocaine Other Substances Used: DENIES FREQUENT USE Hx of Substance Use Treatment: No Allergies-Medications (Allergen,Severity, Reaction): Coded Allergies: No Known Allergies (Verified , 04/17/17) Reported Meds & Prescriptions Reported Meds & Active Scripts Active Bentyl (Dicyclomine HCl) 10 Mg Cap 10 Mg PO TID PRN Protonix (Pantoprazole Sodium) 20 Mg Tab 20 Mg PO DAILY Doxycycline Hyclate 100 Mg Cap 100 Mg PO BID Reported Effexor XR 24 HR (Venlafaxine HCl) 150 Mg Cap 150 Mg PO DAILY Amitriptyline (Amitriptyline HCl) 100 Mg Tab 100 Mg PO HS Lamictal (Lamotrigine) 100 Mg Tab 100 Mg PO DAILY Review of Systems Except as stated in HPI: all other systems reviewed are Neg Exam Alert: Yes [place]: Person (ox4) Mood: Calm Affect: Appropriate Speech: Clear, Logical Eye Contact: Normal Memory Intact: Comment (Not impaired) Hallucinations: Auditory (att imes call her name and tell her people are trying to hurt her.) Suicidal: Ideation (deneis any) Homicidal: Ideation (deneis any ) Insight/Judgement Fair. Not impaired. MDM Medical Decision Making Medical Record Reviewed: Yes Assessment/Plan 31-year-old female with history of PTSD and substance use disorder who presents to the ED under Dsouza act initiated by SILVANO Camp from [facility] for psychiatric evaluation. The Dsouza act alleges that she was suicidal and was thinking of overdosing on her medication. She did not make any attempts to harm herself. Patient at this time is not psychotic, not manic. She denies that she made suicidal statements. She is future oriented with adequate protective factors in place. She is requesting discharge and does not meet criteria to remain here against her will. She will be given a Rx for Seroquel after full disclosure of risks, benefits and possible side effects. . Dsouza act lifted. She will follow up with [facility] and has appointment scheduled in 2 weeks. Counseled on abstinence from substances. Orders Orders Complete Blood Count With Diff (04/17/17 15:25) Comprehensive Metabolic Panel (04/17/17 15:25) Urinalysis - C+S If Indicated (04/17/17 15:25) Psych Screen (04/17/17 15:25) Drug Screen, Random Urine (04/17/17 15:25) Diet Regular Basic (04/17/17 Dinner) Diet Regular Basic (04/18/17 Breakfast) Diet Regular Basic (04/18/17 Lunch) Results Vital Signs Date Time Temp Pulse Resp B/P (MAP) Pulse Ox O2 Delivery O2 Flow Rate FiO2 04/18/17 06:15 80 18 156/84 (108) 97 Room Air 04/18/17 02:13 85 19 157/93 (114) 96 Room Air 04/17/17 22:05 62 19 138/82 (100) 96 Room Air 04/17/17 19:29 97.6 101 18 137/77 (97) 98 Room Air 04/17/17 18:02 78 20 125/68 (87) 99 04/17/17 15:14 98.9 90 16 135/74 (94) 99 Laboratory Tests Test 04/17/17 15:30 White Blood Count 7.7 Red Blood Count 4.28 Hemoglobin 12.8 Hematocrit 37.4 Mean Corpuscular Volume 87.4 Mean Corpuscular Hemoglobin 29.8 Mean Corpuscular Hemoglobin Concent 34.1 Red Cell Distribution Width 14.1 Platelet Count 239 Mean Platelet Volume 8.6 Neutrophils (%) (Auto) 61.0 Lymphocytes (%) (Auto) 30.2 Monocytes (%) (Auto) 6.7 Eosinophils (%) (Auto) 1.5 Basophils (%) (Auto) 0.6 Neutrophils # (Auto) 4.7 Lymphocytes # (Auto) 2.3 Monocytes # (Auto) 0.5 Eosinophils # (Auto) 0.1 Basophils # (Auto) 0.0 CBC Comment DIFF FINAL Differential Comment Urine Color YELLOW Urine Turbidity CLEAR Urine pH 5.5 Urine Specific [place] 1.018 Urine Protein NEG Urine Glucose (UA) NEG Urine Ketones NEG Urine Occult Blood NEG Urine Nitrite NEG Urine Bilirubin NEG Urine Urobilinogen LESS THAN 2.0 Urine Leukocyte Esterase NEG Urine RBC 1 Urine Squamous Epithelial Cells 1 Microscopic Urinalysis Comment CULT NOT INDICATED Blood Urea Nitrogen 9 Creatinine 0.77 Random Glucose 88 Total Protein 7.7 Albumin 3.4 Calcium Level 8.8 Alkaline Phosphatase 94 Aspartate Amino Transf (AST/SGOT) 14 Alanine Aminotransferase (ALT/SGPT) 23 Total Bilirubin 0.3 Sodium Level 139 Potassium Level 4.1 Chloride Level 107 Carbon Dioxide Level 24.9 Anion Gap 7 Estimat Glomerular Filtration Rate 86 Urine Opiates Screen NEG Urine Barbiturates Screen NEG Urine Amphetamines Screen NEG Urine Benzodiazepines Screen POS Urine Cocaine Screen POS Urine Cannabinoids Screen NEG Diagnosis Primary Impression: PTSD (post-traumatic stress disorder) Additional Impression: Cocaine abuse Psychiatrically Cleared: Yes Referrals: [facility] (Out patient) call for appointment Departure Forms: Tests/Procedures Patient Instructions: General Instructions, Post Traumatic Stress Disorder (ED) , Polysubstance Abuse (ED) Med/ Other Pt Specific Info: Prescription(s) given Prescriptions Quetiapine (Seroquel) 50 Mg Tab 50 MG PO HS for Insomnia for 14 Days, #30 TAB 0 Refills Prov: Arlene Irizarry 04/18/17 Amitriptyline (Amitriptyline) 50 Mg Tab 50 MG PO HS for Insomnia for 14 Days, TAB Prov: Arlene IrizarryP 04/18/17 Venlafaxine ER 24 HR (Effexor XR 24 HR) 150 Mg Cap 150 MG PO DAILY for 14 Days, #14 CAP 0 Refills Prov: Arlene Irizarry 04/18/17 Lamotrigine (Lamictal) 100 Mg Tab 100 MG PO DAILY for Control Seizures for 14 Days, #14 TAB 0 Refills Prov: Arlene Irizarry 04/18/17 Disposition: 01 DISCHARGE HOME Condition: Stable Problem Qualifiers Arlene Irizarry Apr 18, 2017 11:58
[2017-04-18] MEDS ORDERED: LAMO100 PO (12:00)
[2017-04-18] MEDS ORDERED: EFFE150C PO (12:01)
[2017-04-18] MEDS ORDERED: AMIT50TA3 PO (12:02)
[2017-04-18] MEDS ORDERED: SERO50TA PO (12:03)
== END 2017-04-18 12:56 | disposition home or self-care (01) ==
LOC: NEDAMB 14:50 → NEPJ 04-18 12:56
DX: F43.10 Post-traumatic stress disorder, unspecified (principal); F14.10 Cocaine abuse, uncomplicated; F17.200 Nicotine dependence, unspecified, uncomplicated; Z79.899 Other long term (current) drug therapy
CPT/HCPCS: 80053; 80307; 81001; 85025; 99284

== ENCOUNTER 2017-05-04 10:17 | Emergency (ER) | payer SELFPAY ==
[~2017-05-04] VITALS: Ht 152.4 cm; Wt 88.5 kg
[~2017-05-04 10:17] MED LIST changes: +AMIT50TA3 PO; +SERO50TA PO
[2017-05-04 10:29] VITALS: BP 174/100; PULSE 86; RESP 18; TEMP 98.7; O2SAT 97
[2017-05-04] MEDS ORDERED: CLON1 PO (11:24)
[2017-05-04] MEDS ORDERED: SERO100T PO (11:24)
--- NOTE | 2017-05-04 12:10 | PD ---
HPI Chief Complaint: GI Complaint Time Seen by Provider: 11:57 Travel History International Travel<30 days: No Contact w/Intl Traveler<30days: No Traveled to known affect area: No History of Present Illness HPI This 31-year-old female is complaining of lower abdominal pain and diarrhea. She says she is having about 10 bowel movements a day. She says that bright yellow and probably. They float on top of the water. She had similar pain 3 weeks ago. She says he was told at that time that she had pancreatitis. She was seen here and her lipase was 321. A CT scan of the abdomen and pelvis did not comment on pancreatitis. She was noted to have some nonspecific hepatomegaly. She has a history of PTSD and is on multiple psych medications. She drinks occasionally she has not had abdominal surgery PFS Past Medical History Anxiety: Yes (ptsd) Depression: Yes Diminished Hearing: No Immunizations Current: Yes Pancreatitis: Yes Tetanus Vaccination: < 5 Years Influenza Vaccination: No ?: Not Tubal Ligation: Yes Past Surgical History Section: Yes (x2) Social History Alcohol Use: No (denies) Tobacco Use: Yes (1.5 PPD) Substance Use: Yes Allergies-Medications (Allergen,Severity, Reaction): Coded Allergies: No Known Allergies (Verified , 05/04/17) Reported Meds & Prescriptions Reported Meds & Active Scripts Active Reported Klonopin (Clonazepam) 1 Mg Tab 1 Mg PO DIRECTED Seroquel (Quetiapine Fumarate) 100 Mg Tab 100 Mg PO HS Effexor XR 24 HR (Venlafaxine HCl) 150 Mg Cap 150 Mg PO DAILY Amitriptyline (Amitriptyline HCl) 100 Mg Tab 100 Mg PO HS Lamictal (Lamotrigine) 100 Mg Tab 100 Mg PO DAILY Review of Systems General / Constitutional: No: Fever, Chills Eyes: No: Diploplia, Blurred Vision HENT: No: Headaches, Vertigo Cardiovascular: No: Chest Pain or Discomfort, Palpitations Respiratory: No: Cough, Shortness of Breath Gastrointestinal: Positive: Diarrhea, Abdominal Pain, No: Nausea, Vomiting Genitourinary: No: Urgency, Frequency Musculoskeletal: No: Myalgias Skin: No Rash, No Itching Physical Exam Narrative GENERAL: Well-developed female SKIN: Focused skin assessment warm/dry. HEAD: Atraumatic. Normocephalic. EYES: Pupils equal and round. No scleral icterus. No injection or drainage. ENT: No nasal bleeding or discharge. Mucous membranes pink and moist. NECK: Trachea midline. No JVD. CARDIOVASCULAR: Regular rate and rhythm. No murmur appreciated. RESPIRATORY: No accessory muscle use. Clear to auscultation. Breath sounds equal bilaterally. GASTROINTESTINAL: Abdomen soft, non-tender, nondistended. Hepatic and splenic margins not palpable. MUSCULOSKELETAL: No obvious deformities. No clubbing. No cyanosis. No edema. NEUROLOGICAL: Awake and alert. No obvious cranial nerve deficits. Motor grossly within normal limits. Normal speech. PSYCHIATRIC: Appropriate mood and affect; insight and judgment normal. Data Data Last Documented VS Vital Signs Date Time Temp Pulse Resp B/P (MAP) Pulse Ox O2 Delivery O2 Flow Rate FiO2 05/04/17 11:22 (124) 05/04/17 10:29 98.7 86 18 97 Room Air Orders Orders Urinalysis - C+S If Indicated (05/04/17 11:08) Ed Urine Pregnancytest Poc (05/04/17 11:08) Complete Blood Count With Diff (05/04/17 12:04) Comprehensive Metabolic Panel (05/04/17 12:04) Lipase (05/04/17 12:04) Enteric Path (Stool) (05/04/17 12:04) C Diff Toxin Pcr (05/04/17 12:04) Stool Ova And Parasite Screen (05/04/17 12:04) Sodium Chlor 0.9% 1000 Ml Inj (Ns 1000 M (05/04/17 12:15) Ondansetron Inj (Zofran Inj) (05/04/17 12:15) Hydromorphone Pf Inj (Dilaudid Pf Inj) (05/04/17 12:15) Labs Laboratory Tests Test 05/04/17 12:10 05/04/17 12:25 Urine Collection Type VOIDED Urine Color YELLOW Urine Turbidity HAZY Urine pH 5.5 Urine Specific Crawford 1.019 Urine Protein NEG mg/dL Urine Glucose (UA) NEG mg/dL Urine Ketones NEG mg/dL Urine Occult Blood NEG Urine Nitrite NEG Urine Bilirubin NEG Urine Leukocyte Esterase SMALL Urine RBC 0-3 /hpf Urine WBC 3-5 /hpf Urine Squamous Epithelial Cells 0-5 /hpf Urine Bacteria RARE /hpf Microscopic Urinalysis Comment CULT NOT INDICATED Urine Collection Time 1210 White Blood Count 9.3 TH/MM3 Red Blood Count 4.66 MIL/MM3 Hemoglobin 13.5 GM/DL Hematocrit 39.8 % Mean Corpuscular Volume 85.5 FL Mean Corpuscular Hemoglobin 28.9 PG Mean Corpuscular Hemoglobin Concent 33.8 % Red Cell Distribution Width 12.8 % Platelet Count 240 TH/MM3 Mean Platelet Volume 8.5 FL Neutrophils (%) (Auto) 70.0 % Lymphocytes (%) (Auto) 22.8 % Monocytes (%) (Auto) 5.3 % Eosinophils (%) (Auto) 1.3 % Basophils (%) (Auto) 0.6 % Neutrophils # (Auto) 6.5 TH/MM3 Lymphocytes # (Auto) 2.1 TH/MM3 Monocytes # (Auto) 0.5 TH/MM3 Eosinophils # (Auto) 0.1 TH/MM3 Basophils # (Auto) 0.1 TH/MM3 CBC Comment DIFF FINAL Differential Comment Blood Urea Nitrogen 9 MG/DL Creatinine 0.76 MG/DL Random Glucose 89 MG/DL Total Protein 8.0 GM/DL Albumin 3.9 GM/DL Calcium Level 9.1 MG/DL Alkaline Phosphatase 82 U/L Aspartate Amino Transf (AST/SGOT) 13 U/L Alanine Aminotransferase (ALT/SGPT) 21 U/L Total Bilirubin 0.2 MG/DL Sodium Level 139 MEQ/L Potassium Level 4.0 MEQ/L Chloride Level 107 MEQ/L Carbon Dioxide Level 25.0 MEQ/L Anion Gap 7 MEQ/L Estimat Glomerular Filtration Rate 88 ML/MIN Lipase 214 U/L [facility] Medical Decision Making Medical Screen Exam Complete: Yes Emergency Medical Condition: Yes Medical Record Reviewed: Yes Differential Diagnosis Differential includes enteritis, parasitic infection, colitis Narrative Course Patient had a CAT scan on which was normal; repeat that. Her hemoglobin is 13 5. White count 9.3. He'll be treated empirically with Flagyl and Bentyl Diagnosis Primary Impression: Enteritis Scripts Dicyclomine (Dicyclomine) 20 Mg Tab 20 MG PO QID for Bowel Management, #20 TAB 0 Refills Prov: Rodolfo Hall MD 05/04/17 Metronidazole (Flagyl) 500 Mg Tab 500 MG PO TID for Infection, #21 TAB 0 Refills Prov: Rodolfo Hall MD 05/04/17 Disposition: DISCHARGE HOME Condition: Stable Rodolfo Hall MD May 04, 2017 12:10
[2017-05-04] MEDS ORDERED: ONDANSETRON HCL 4 MG/2 ML VIAL IV PUSH ONE (12:15)
[2017-05-04] MEDS ORDERED: SODIUM CHLOR 0.9% 1000 ML INJ 1,000 ML IV ONE (12:15)
[2017-05-04] MEDS ORDERED: HYDROmorphone HCL PF 1 MG/ML VIAL IV PUSH ONE (12:15)
[2017-05-04 12:26] LABS: BLOOD, URINE NEG (NEG); GLUCOSE,URINE NEG (NEG); KETONE, URINE NEG (NEG); NITRITE,URINE NEG (NEG); PH, URINE 5.5 (5.0-8.5)
[2017-05-04 12:30] LABS: AUTOMATED NEUTROPHIL # 6.5 TH/MM3 (1.8-7.7); BASOPHIL # 0.1 TH/MM3 (0-0.2); BASOPHIL % 0.6 % (0.0-2.0); EOSINOPHIL # 0.1 TH/MM3 (0-0.4); EOSINOPHIL % 1.3 % (0.0-4.0); HEMATOCRIT 39.8 % (35.0-46.0); HEMO FLAGS DIFF FINAL; LYMPH % 22.8 % (9.0-44.0); LYMPHOCYTE # 2.1 TH/MM3 (1.0-4.8); MEAN CELL VOLUME 85.5 FL (80.0-100.0); MEAN CORPUSCULAR HEMOGLOBIN 28.9 PG (27.0-34.0); MEAN CORPUSCULAR HGB CONC 33.8 % (32.0-36.0); MONO % 5.3 % (0.0-8.0); PLATELET COUNT 240 TH/MM3 (150-450); RED BLOOD COUNT 4.66 MIL/MM3 (4.00-5.30); RED CELL DISTRIBUTION WIDTH 12.8 % (11.6-17.2); WHITE BLOOD COUNT 9.3 TH/MM3 (4.0-11.0)
[2017-05-04 12:33] LABS: BACTERIA, URINE RARE /hpf; COMMENT (UR) CULT NOT INDICATED; CULTURE IF INDICATED CULT NOT INDICATED; METHOD OF COLLECTION VOIDED; RBC, URINE 0-3 /hpf (0-3); SQUAMOUS EPITHELIAL CELL URINE 0-5 /hpf (0-5); URINE COLOR YELLOW (YELLW/STRAW)
[2017-05-04 12:47] LABS: CHLORIDE 107 MEQ/L (98-107); SODIUM (NA) 139 MEQ/L (136-145)
[2017-05-04 12:51] LABS: ANION GAP 7 MEQ/L (5-15)
[2017-05-04 12:52] LABS: BLOOD UREA NITROGEN 9 MG/DL (7-18)
[2017-05-04 12:54] LABS: ALT (GPT) 21 U/L (10-53); AST (GOT) 13 U/L (15-37); GLOMERULAR FILTRATION RATE 88 ML/MIN (>89)
[2017-05-04 12:56] LABS: TOTAL BILIRUBIN ADULT 0.2 MG/DL (0.2-1.0)
[2017-05-04 12:57] LABS: ALKALINE PHOSPHATASE 82 U/L (45-117)
[2017-05-04] MEDS ORDERED: DICY20TA10 PO (13:22)
[2017-05-04] MEDS ORDERED: METR-1 PO (13:22)
[2017-05-04 13:24] VITALS: BP 141/86; PULSE 72; RESP 16; O2SAT 98
== END 2017-05-04 13:34 | disposition home or self-care (01) ==
LOC: PHED 10:17
DX: K52.9 Noninfective gastroenteritis and colitis, unspecified (principal); F43.10 Post-traumatic stress disorder, unspecified; F17.200 Nicotine dependence, unspecified, uncomplicated
CPT/HCPCS: 80053; 81001; 83690; 84703; 85025; 96361; 96374; 96375; 99284; J1170; J2405; J7030

== ENCOUNTER 2017-08-05 16:32 | Emergency (ER) | payer SELFPAY ==
[~2017-08-05] VITALS: Ht 152.4 cm; Wt 87.1 kg
[~2017-08-05 16:32] MED LIST changes: -AMIT50TA3 PO; +CLON1 PO; -DICY10 PO; +DICY20TA10 PO; -DOXY100C PO; +METR-1 PO; -PANT20 PO; +SERO100T PO; -SERO50TA PO
[2017-08-05 16:38] VITALS: BP 171/99; PULSE 98; RESP 16; TEMP 98.4; O2SAT 98
[2017-08-05] MEDS ORDERED: LORazepam 2 MG/ML VIAL IM SCH (17:15)
[2017-08-05] MEDS ORDERED: lamoTRIgine 100 MG TAB PO ONE (17:15)
[2017-08-05] MEDS ORDERED: QUEtiapine FUMARATE 25 MG TAB PO ONE (17:15)
[2017-08-05] MEDS ORDERED: LAMO100 PO (17:24)
[2017-08-05] MEDS ORDERED: SERO100T PO (17:24)
[2017-08-05] MEDS ORDERED: AMIT100T2 PO (17:24)
--- NOTE | 2017-08-05 17:24 | PD ---
HPI . Anxiety Chief Complaint: Psychiatric Symptoms Time Seen by Provider: 17:05 Travel History International Travel<30 days: No Contact w/Intl Traveler<30days: No Traveled to known affect area: No History of Present Illness HPI Patient reports that she suffers from bipolar disorder and PTSD. She states that she missed her most recent psychiatric appointment and has subsequently run out of her usual medications. Over the course of the last couple days, she has had escalating hallucinations. She feels very anxious. She can't be still. She states that she hurts all over. She rates the intensity of her symptoms at 9/10. She denies any homicidal or suicidal ideation. PFSH Past Medical History Anxiety: Yes (ptsd) Depression: Yes Diminished Hearing: No Immunizations Current: Yes Pancreatitis: Yes (PAST) Tetanus Vaccination: < 5 Years Influenza Vaccination: No ?: Not LMP: 07/31/17 Tubal Ligation: Yes Past Surgical History Section: Yes (x2) Social History Alcohol Use: No (denies) Tobacco Use: Yes (1.5 PPD) Substance Use: Yes (OCC CRACK) Allergies-Medications (Allergen,Severity, Reaction): Coded Allergies: No Known Allergies (Verified , 05/04/17) Reported Meds & Prescriptions Reported Meds & Active Scripts Active Seroquel (Quetiapine Fumarate) 100 Mg Tab 50 Mg PO BID Amitriptyline (Amitriptyline HCl) 100 Mg Tab 150 Mg PO HS 30 Days Lamictal (Lamotrigine) 100 Mg Tab 100 Mg PO DAILY Reported Effexor XR 24 HR (Venlafaxine HCl) 150 Mg Cap 150 Mg PO DAILY Review of Systems Except as stated in HPI: all other systems reviewed are Neg General / Constitutional: No: Fever, Chills Musculoskeletal: Positive: Myalgias Psychiatric: Positive: Anxiety, Disorder of Thought, No: Suicidal Ideations, Homicidal Ideation Physical Exam Narrative GENERAL: Awake and alert. Sitting on the stretcher rocking back and forth and crying. SKIN: Warm and dry. Good color and turgor. HEAD: Normocephalic/atraumatic. EYES: Pupils are equal. Extraocular movements are intact. NECK: Normal range of motion. CARDIOVASCULAR: Regular rate and rhythm. RESPIRATORY: Nonlabored respirations. MUSCULOSKELETAL: Atraumatic. NEUROLOGICAL: Nonfocal. PSYCHIATRIC: Anxious. Tearful. Good eye contact. Judgment seems good. Data Data Last Documented VS Vital Signs Date Time Temp Pulse Resp B/P (MAP) Pulse Ox O2 Delivery O2 Flow Rate FiO2 08/05/17 17:38 91 18 163/88 (113) 99 Room Air 08/05/17 16:38 98.4 Orders Orders Lorazepam Inj (Ativan Inj) (08/05/17 17:15) Lamotrigine (Lamictal) (08/05/17 17:15) Quetiapine (Seroquel) (08/05/17 17:15) Ketorolac Inj (Toradol Inj) (08/05/17 17:45) Ed Discharge Order (08/05/17 17:49) [facility] Medical Decision Making Medical Screen Exam Complete: Yes Emergency Medical Condition: Yes Differential Diagnosis Differential diagnosis of psychosis includes but is not limited to schizophrenia , schizoaffective disorder, bipolar disorder, intoxication, substance abuse, dementia Narrative Course This patient presents complaining with psychotic features since abruptly stopping her medications 4 days ago. She denies homicidal or suicidal ideation. She would like to try outpatient treatment. She states that she cannot take Geodon and Haldol dystonic reactions. I will give her a shot of Ativan. I will give her her usual medications. Patient reports that she is feeling much better. I have written her for refills on her psychiatric medications. She has been admonished to keep her psychiatric appointments. Diagnosis Primary Impression: PTSD (post-traumatic stress disorder) Additional Impression: Bipolar disorder Qualified Codes: F31.5 - Bipolar disorder, current episode depressed, severe, with psychotic features Patient Instructions: Bipolar Disorder (DC), General Instructions Med/Other Pt SpecificInfo: Prescription(s) given Scripts Quetiapine (Seroquel) 100 Mg Tab 50 MG PO BID, #30 TAB 0 Refills Prov: Meera Diaz MD 08/05/17 Amitriptyline (Amitriptyline) 100 Mg Tab 150 MG PO HS for 30 Days, #30 TAB Prov: Meera Diaz MD 08/05/17 Lamotrigine (Lamictal) 100 Mg Tab 100 MG PO DAILY for Control Seizures, #30 TAB 0 Refills Prov: Meera Diaz MD 08/05/17 Disposition: 01 DISCHARGE HOME Condition: Stable Meera Diaz MD Aug 05, 2017 17:24
[2017-08-05 17:38] VITALS: BP 163/88; PULSE 91; RESP 18; O2SAT 99
[2017-08-05] MEDS ORDERED: KETOROLAC TROMETHAMINE 60 MG/2 ML (IM) VIAL IM ONE (17:45)
== END 2017-08-05 17:54 | disposition home or self-care (01) ==
LOC: PHED 16:32
DX: F43.10 Post-traumatic stress disorder, unspecified (principal); F31.5 Bipolar disorder, current episode depressed, severe, with psychotic features; F14.90 Cocaine use, unspecified, uncomplicated; F17.210 Nicotine dependence, cigarettes, uncomplicated
CPT/HCPCS: 96372; 99284; J1885; J2060

== ENCOUNTER 2017-11-01 23:15 | Emergency (ER) | payer SELFPAY ==
[~2017-11-01] VITALS: Ht 152.4 cm; Wt 88.0 kg
[~2017-11-01 23:15] MED LIST changes: -CLON1 PO; -DICY20TA10 PO; -METR-1 PO
[2017-11-01 23:18] VITALS: BP 157/90; PULSE 99; RESP 18; TEMP 98.9; O2SAT 97
[2017-11-01] MEDS ORDERED: SODIUM CHLOR 0.9% 1000 ML INJ 1,000 ML IV SCH (23:38)
[2017-11-01] MEDS ORDERED: ONDANSETRON HCL 4 MG/2 ML VIAL IVP ONE (23:45)
[2017-11-01] MEDS ORDERED: SODIUM CHLORIDE 0.9% FLUSH 10 ML FLUSH IV FLUSH PRN (23:45)
[2017-11-01] MEDS ORDERED: MORPHINE SULFATE 4 MG/ML INJ IV PUSH ONE (23:45)
[2017-11-02] MEDS ORDERED: GABA100C4 PO (00:19)
[2017-11-02 00:35] LABS: BILIRUBIN, URINE NEG (NEG); BLOOD, URINE NEG (NEG); GLUCOSE,URINE NEG (NEG); KETONE, URINE NEG (NEG); NITRITE,URINE NEG (NEG); URINE COLOR YELLOW (YELLW/STRAW); URINE LEUKOCYTE ESTERASE NEG (NEG)
[2017-11-02 00:36] LABS: BASOPHIL # 0.1 TH/MM3 (0-0.2); BASOPHIL % 1.1 % (0.0-2.0); EOSINOPHIL # 0.1 TH/MM3 (0-0.4); EOSINOPHIL % 0.8 % (0.0-4.0); HEMATOCRIT 41.8 % (35.0-46.0); HEMOGLOBIN 14.2 GM/DL (11.6-15.3); LYMPH % 25.2 % (9.0-44.0); LYMPHOCYTE # 2.5 TH/MM3 (1.0-4.8); MEAN CORPUSCULAR HEMOGLOBIN 28.8 PG (27.0-34.0); MEAN CORPUSCULAR HGB CONC 33.9 % (32.0-36.0); MEAN PLATELET VOLUME 9.1 FL (7.0-11.0); MONOCYTE # 0.3 TH/MM3 (0-0.9); NEUT % 69.9 % (16.0-70.0); PLATELET COUNT 211 TH/MM3 (150-450); RED BLOOD COUNT 4.92 MIL/MM3 (4.00-5.30); RED CELL DISTRIBUTION WIDTH 14.3 % (11.6-17.2)
--- NOTE | 2017-11-02 00:36 | PD ---
HPI Chief Complaint: GI Complaint Time Seen by Provider: 23:30 Travel History International Travel<30 days: No Contact w/Intl Traveler<30days: No Traveled to known affect area: No History of Present Illness HPI Patient is a 32-year-old female who presents the emergency room with complaints of abdominal pain. Patient reports that for the past 3-4 days, she has been having increased pain to her upper abdomen which is worse after eating. Reports increased sensation of nausea with no vomiting. Denies any fever/ chills. Reports that she has also noticed that her skin feels "itchier than normal." PFSH Past Medical History Anxiety: Yes (ptsd) Depression: Yes Diminished Hearing: No Immunizations Current: Yes Pancreatitis: Yes (PAST) Tetanus Vaccination: < 5 Years Influenza Vaccination: No ?: Not LMP: 09/21/17 Tubal Ligation: Yes Past Surgical History Section: Yes (x2) Social History Alcohol Use: Yes (SOCC) Tobacco Use: Yes (1PPD) Substance Use: No (HX of CRACK) Allergies-Medications (Allergen,Severity, Reaction): Coded Allergies: No Known Allergies (Verified , 05/04/17) Reported Meds & Prescriptions Reported Meds & Active Scripts Active Seroquel (Quetiapine Fumarate) 100 Mg Tab 50 Mg PO BID Lamictal (Lamotrigine) 100 Mg Tab 100 Mg PO DAILY Reported Gabapentin 100 Mg Cap 100 Mg PO BID Effexor XR 24 HR (Venlafaxine HCl) 150 Mg Cap 150 Mg PO DAILY Review of Systems General / Constitutional: No: Fever Eyes: No: Visual changes HENT: No: Headaches Cardiovascular: No: Chest Pain or Discomfort Respiratory: No: Shortness of Breath Gastrointestinal: Positive: Nausea, Vomiting, Abdominal Pain Genitourinary: No: Dysuria Musculoskeletal: No: Pain Skin: No Rash Neurologic: No: Weakness Psychiatric: No: Depression Endocrine: No: Polydipsia Hematologic/Lymphatic: No: Easy Bruising Physical Exam Narrative GENERAL: Mild distress SKIN: Focused skin assessment warm/dry. HEAD: Atraumatic. Normocephalic. EYES: Pupils equal and round. No scleral icterus. No injection or drainage. ENT: No nasal bleeding or discharge. Mucous membranes pink and moist. NECK: Trachea midline. No JVD. CARDIOVASCULAR: Regular rate and rhythm. No murmur appreciated. RESPIRATORY: No accessory muscle use. Clear to auscultation. Breath sounds equal bilaterally. GASTROINTESTINAL: Abdomen soft, increased tenderness to epigastrium to RUQ, nondistended. Hepatic and splenic margins not palpable. MUSCULOSKELETAL: No obvious deformities. No clubbing. No cyanosis. No edema. NEUROLOGICAL: Awake and alert. No obvious cranial nerve deficits. Motor grossly within normal limits. Normal speech. PSYCHIATRIC: Appropriate mood and affect; insight and judgment normal. Data Data Last Documented VS Vital Signs Date Time Temp Pulse Resp B/P (MAP) Pulse Ox O2 Delivery O2 Flow Rate FiO2 11/02/17 00:37 18 97 Room Air 11/01/17:18 98.9 99 Orders Orders Complete Blood Count With Diff (11/01/17 23:38) Comprehensive Metabolic Panel (11/01/17 23:38) Lipase (11/01/17 23:38) Prothrombin Time / Inr (Pt) (11/01/17 23:38) Act Partial Throm Time (Ptt) (11/01/17 23:38) Urinalysis - C+S If Indicated (11/01/17 23:38) Us Abdomen Gallbladder (11/01/17 ) Iv Access Insert/Monitor (11/01/17 23:38) Ecg Monitoring (11/01/17 23:38) Oximetry (11/01/17 23:38) Morphine Inj (Morphine Inj) (11/01/17 23:45) Ondansetron Inj (Zofran Inj) (11/01/17 23:45) Sodium Chlor 0.9% 1000 Ml Inj (Ns 1000 M (11/01/17 23:38) Sodium Chloride 0.9% Flush (Ns Flush) (11/01/17 23:45) Ed Urine Pregnancytest Poc (11/01/17 23:38) Labs Laboratory Tests Test 11/02/17 00:24 White Blood Count 10.0 TH/MM3 Red Blood Count 4.92 MIL/MM3 Hemoglobin 14.2 GM/DL Hematocrit 41.8 % Mean Corpuscular Volume 85.0 FL Mean Corpuscular Hemoglobin 28.8 PG Mean Corpuscular Hemoglobin Concent 33.9 % Red Cell Distribution Width 14.3 % Platelet Count 211 TH/MM3 Mean Platelet Volume 9.1 FL Neutrophils (%) (Auto) 69.9 % Lymphocytes (%) (Auto) 25.2 % Monocytes (%) (Auto) 3.0 % Eosinophils (%) (Auto) 0.8 % Basophils (%) (Auto) 1.1 % Neutrophils # (Auto) 7.0 TH/MM3 Lymphocytes # (Auto) 2.5 TH/MM3 Monocytes # (Auto) 0.3 TH/MM3 Eosinophils # (Auto) 0.1 TH/MM3 Basophils # (Auto) 0.1 TH/MM3 CBC Comment AUTO DIFF Sodium Level 138 MEQ/L Potassium Level 3.4 MEQ/L Chloride Level 109 MEQ/L [facility]DM Medical Decision Making Medical Screen Exam Complete: Yes Emergency Medical Condition: Yes Medical Record Reviewed: Yes Interpretation(s) Vital Signs Date Time Temp Pulse Resp B/P (MAP) Pulse Ox O2 Delivery O2 Flow Rate FiO2 11/01/17 23:39 18 11/01/17 23:18 98.9 99 18 157/90 (112) 97 Differential Diagnosis Cholecystitis, pancreatitis, cholangitis, gastritis, GERD, electrolyte abnormality Narrative Course During the course of the patients emergency department visit, the patients history, examination, and differential diagnosis were reviewed with the patient. The patient was placed on a cardiac cath lab radiology technologist with oximetry and frequent blood pressure monitoring. The patient had an IV access obtained and blood work sent for analysis. The patient was initially provided IVF, IV morphine for pain. Patient signed out to Dr. Dumont at change of shift. Patient pending RU US and dispo Jyotsna Childress DO Nov 02, 2017 00:36
[2017-11-02 00:37] VITALS: RESP 18; O2SAT 97
[2017-11-02 00:44] LABS: CHLORIDE 109 MEQ/L (98-107); SODIUM (NA) 138 MEQ/L (136-145)
[2017-11-02 00:47] LABS: ALBUMIN 3.6 GM/DL (3.4-5.0); BICARBONATE 22.4 MEQ/L (21.0-32.0); CALCIUM 8.8 MG/DL (8.5-10.1)
[2017-11-02 00:48] LABS: BLOOD UREA NITROGEN 8 MG/DL (7-18); GLUCOSE,RANDOM 112 MG/DL (74-106)
[2017-11-02 00:49] LABS: RBC, URINE 0-2 /hpf (0-3); SQUAMOUS EPITHELIAL CELL URINE 0-5 /hpf (0-5); WBC, URINE 0-2 /hpf (0-5)
[2017-11-02 00:50] LABS: ALT (GPT) 18 U/L (10-53); AST (GOT) 13 U/L (15-37)
[2017-11-02 00:51] LABS: CREATININE 0.73 MG/DL (0.50-1.00); GLOMERULAR FILTRATION RATE 91 ML/MIN (>89)
[2017-11-02 00:52] LABS: TOTAL BILIRUBIN ADULT 0.2 MG/DL (0.2-1.0); TOTAL PROTEIN 8.3 GM/DL (6.4-8.2)
[2017-11-02 00:53] LABS: ALKALINE PHOSPHATASE 92 U/L (45-117)
[2017-11-02 00:58] LABS: PROTHROMBIN TIME - PATIENT 10.2 SEC (9.8-11.6)
--- NOTE | 2017-11-02 01:22 | RADRPT ---
EXAM DATE/TIME: 11/02/2017 00:53 [facility] COMPARISON: CT ABDOMEN & PELVIS W/O CONTRAST, April 01, 2017, 18:14. INDICATIONS : Right upper quadrant Pain. MEDICAL HISTORY : None. SURGICAL HISTORY : None. ENCOUNTER: Initial ACUITY: 3 days PAIN SCORE: 7/10 LOCATION: Right upper quadrant MEASUREMENTS: LIVER: 18.0 cm length COMMON DUCT: 4 mm RIGHT KIDNEY: 11.8 x 5.4 x 5.3 cm FINDINGS: LIVER: Hepatomegaly. Normal echotexture without focal lesion or ductal dilatation. COMMON DUCT: No intraluminal mass or stone visualized. GALLBLADDER: Contains no stones, demonstrates no wall thickening or pericholecystic fluid. PANCREAS: Totally obscured by bowel gas. RIGHT KIDNEY: No evidence of hydronephrosis, stone, or mass. CONCLUSION: 1. Hepatomegaly without mass. 2. No acute abnormality observed. 3. The pancreas is totally obscured by bowel gas. Toi Levine Jr., MD on November 02, 2017 at 1:17 Board Certified Radiologist. This report was verified electronically.
[2017-11-02] MEDS ORDERED: IBUP-232 PO (01:33)
[2017-11-02] MEDS ORDERED: PROC10TA PO (01:34)
--- NOTE | 2017-11-02 01:36 | PD ---
Physical Exam Time Seen by Provider: 01:[address] Childress left this patient with me to check the ultrasound and, if normal, discharge. Data Data Last Documented VS Vital Signs Date Time Temp Pulse Resp B/P (MAP) Pulse Ox O2 Delivery O2 Flow Rate FiO2 11/02/17 00:37 18 97 Room Air 11/01/17:18 98.9 99 Orders Orders Complete Blood Count With Diff (11/01/17 23:38) Comprehensive Metabolic Panel (11/01/17 23:38) Lipase (11/01/17 23:38) Prothrombin Time / Inr (Pt) (11/01/17 23:38) Act Partial Throm Time (Ptt) (11/01/17 23:38) Urinalysis - C+S If Indicated (11/01/17 23:38) Us Abdomen Gallbladder (11/01/17 ) Iv Access Insert/Monitor (11/01/17 23:38) Ecg Monitoring (11/01/17 23:38) Oximetry (11/01/17 23:38) Morphine Inj (Morphine Inj) (11/01/17 23:45) Ondansetron Inj (Zofran Inj) (11/01/17 23:45) Sodium Chlor 0.9% 1000 Ml Inj (Ns 1000 M (11/01/17 23:38) Sodium Chloride 0.9% Flush (Ns Flush) (11/01/17 23:45) Ed Urine Pregnancytest Poc (11/01/17 23:38) Labs Laboratory Tests Test 11/02/17 00:24 White Blood Count 10.0 TH/MM3 Red Blood Count 4.92 MIL/MM3 Hemoglobin 14.2 GM/DL Hematocrit 41.8 % Mean Corpuscular Volume 85.0 FL Mean Corpuscular Hemoglobin 28.8 PG Mean Corpuscular Hemoglobin Concent 33.9 % Red Cell Distribution Width 14.3 % Platelet Count 211 TH/MM3 Mean Platelet Volume 9.1 FL Neutrophils (%) (Auto) 69.9 % Lymphocytes (%) (Auto) 25.2 % Monocytes (%) (Auto) 3.0 % Eosinophils (%) (Auto) 0.8 % Basophils (%) (Auto) 1.1 % Neutrophils # (Auto) 7.0 TH/MM3 Lymphocytes # (Auto) 2.5 TH/MM3 Monocytes # (Auto) 0.3 TH/MM3 Eosinophils # (Auto) 0.1 TH/MM3 Basophils # (Auto) 0.1 TH/MM3 CBC Comment AUTO DIFF Differential Comment AUTO DIFF CONFIRMED Platelet Estimate NORMAL Platelet Morphology Comment NORMAL Red Cell Morphology Comment NORMAL Prothrombin Time 10.2 SEC Prothromb Time International Ratio 1.0 RATIO Activated Partial Thromboplast Time 28.8 SEC Urine Color YELLOW Urine Turbidity CLEAR Urine pH 6.0 Urine Specific Erin LESS/EQUAL 1.005 Urine Protein NEG mg/dL Urine Glucose (UA) NEG mg/dL Urine Ketones NEG mg/dL Urine Occult Blood NEG Urine Nitrite NEG Urine Bilirubin NEG Urine Urobilinogen 0.2 MG/DL Urine Leukocyte Esterase NEG Urine RBC 0-2 /hpf Urine WBC 0-2 /hpf Urine Squamous Epithelial Cells 0-5 /hpf Urine Bacteria NONE /hpf Microscopic Urinalysis Comment CULT NOT INDICATED Blood Urea Nitrogen 8 MG/DL Creatinine 0.73 MG/DL Random Glucose 112 MG/DL Total Protein 8.3 GM/DL Albumin 3.6 GM/DL Calcium Level 8.8 MG/DL Alkaline Phosphatase 92 U/L Aspartate Amino Transf (AST/SGOT) 13 U/L Alanine Aminotransferase (ALT/SGPT) 18 U/L Total Bilirubin 0.2 MG/DL Sodium Level 138 MEQ/L Potassium Level 3.4 MEQ/L Chloride Level 109 MEQ/L Carbon Dioxide Level 22.4 MEQ/L Anion Gap 7 MEQ/L Estimat Glomerular Filtration Rate 91 ML/MIN Lipase 180 U/L [facility] Medical Record Reviewed: Yes Supervised Visit with ARNOLD: No Interpretation(s) The ultrasound of the gallbladder shows hepatomegaly without mass and no acute abnormality observed. The CBC is normal. The complete metabolic profile shows a total protein of 8.3 and potassium 3.4 but is otherwise unremarkable. The lipase is normal. The coagulation profile is normal. The urinalysis is normal. Differential Diagnosis Cholelithiasis with colic, cholecystitis, urinary tract infection, drug-seeking behavior, electrolyte disorder Narrative Course Apparently, the patient has a history of crack cocaine abuse. She wants something for the pain and we will write ibuprofen and prochlorperazine for nausea. She needs to follow-up with a primary care physician and get a dishwasher busser. She is told that a dishwasher busser can scope her to make a definitive diagnosis. Additional Instruction: As we discussed, follow-up with a dishwasher busser, that would be the ideal physician to see. They can do upper endoscopy and make a definitive diagnosis. Med/Other Pt SpecificInfo: Prescription(s) given Scripts Prochlorperazine Maleate (Prochlorperazine Maleate) 10 Mg Tab 10 MG PO Q6H Y for NAUSEA OR VOMITING, #33 TAB 0 Refills Prov: Jakob Dumont MD 11/02/17 Ibuprofen (Ibuprofen) 600 Mg Tab 600 MG PO TID, #28 TAB 0 Refills Prov: Jakob Dumont MD 11/02/17 Disposition: 01 DISCHARGE HOME Condition: Stable Jakob Dumont MD Nov 02, 2017 01:36
== END 2017-11-02 01:54 | disposition home or self-care (01) ==
LOC: PHED 23:15
DX: R10.9 Unspecified abdominal pain (principal); R11.0 Nausea; F14.10 Cocaine abuse, uncomplicated; R16.0 Hepatomegaly, not elsewhere classified; F43.10 Post-traumatic stress disorder, unspecified; F32.9 Major depressive disorder, single episode, unspecified; F17.200 Nicotine dependence, unspecified, uncomplicated
CPT/HCPCS: 76705; 80053; 81001; 83690; 84703; 85025; 85610; 85730; 96361; 96374; 96375; 99284; J2270; J2405; J7030

== ENCOUNTER 2017-11-05 01:22 | Emergency (ER) | payer SELFPAY ==
[~2017-11-05] VITALS: Ht 152.4 cm; Wt 87.7 kg
[~2017-11-05 01:22] MED LIST changes: -AMIT100T2 PO; +GABA100C4 PO; +IBUP-232 PO; +PROC10TA PO
[2017-11-05 01:26] VITALS: BP 158/108; PULSE 91; RESP 18; TEMP 98.8; O2SAT 98
[2017-11-05] MEDS ORDERED: SODIUM CHLOR 0.9% 1000 ML INJ 1,000 ML IV SCH (02:21)
[2017-11-05 02:30] VITALS: O2SAT 98
[2017-11-05] MEDS ORDERED: ONDANSETRON HCL 4 MG/2 ML VIAL IVP ONE (02:30)
[2017-11-05] MEDS ORDERED: SODIUM CHLORIDE 0.9% FLUSH 10 ML FLUSH IV FLUSH PRN (02:30)
[2017-11-05 02:35] VITALS: BP 142/80; PULSE 88; RESP 16; O2SAT 100
[2017-11-05 02:42] LABS: AUTOMATED NEUTROPHIL # 5.9 TH/MM3 (1.8-7.7); BASOPHIL # 0.1 TH/MM3 (0-0.2); EOSINOPHIL # 0.2 TH/MM3 (0-0.4); EOSINOPHIL % 1.7 % (0.0-4.0); HEMATOCRIT 43.6 % (35.0-46.0); HEMOGLOBIN 14.4 GM/DL (11.6-15.3); LYMPH % 26.7 % (9.0-44.0); LYMPHOCYTE # 2.5 TH/MM3 (1.0-4.8); MEAN CELL VOLUME 84.6 FL (80.0-100.0); MEAN CORPUSCULAR HGB CONC 33.1 % (32.0-36.0); MEAN PLATELET VOLUME 9.3 FL (7.0-11.0); MONO % 5.2 % (0.0-8.0); MONOCYTE # 0.5 TH/MM3 (0-0.9); NEUT % 65.4 % (16.0-70.0); PLATELET COUNT 201 TH/MM3 (150-450); RED BLOOD COUNT 5.15 MIL/MM3 (4.00-5.30); RED CELL DISTRIBUTION WIDTH 13.4 % (11.6-17.2); WHITE BLOOD COUNT 9.2 TH/MM3 (4.0-11.0)
[2017-11-05 02:44] LABS: BILIRUBIN, URINE NEG (NEG); BLOOD, URINE LARGE (NEG); GLUCOSE,URINE NEG (NEG); KETONE, URINE NEG (NEG); NITRITE,URINE NEG (NEG); PH, URINE 5.5 (5.0-8.5); URINE COLOR YELLOW (YELLW/STRAW); URINE LEUKOCYTE ESTERASE NEG (NEG)
[2017-11-05 02:55] LABS: MUCUS URINE FEW /lpf (OCC); SQUAMOUS EPITHELIAL CELL URINE 0-5 /hpf (0-5)
--- NOTE | 2017-11-05 03:10 | PD ---
HPI Chief Complaint: GI Complaint Time Seen by Provider: 01:30 Travel History International Travel<30 days: No Contact w/Intl Traveler<30days: No Traveled to known affect area: No History of Present Illness HPI 32-year-old female presents to the emergency department by private transportation for complaint of 6 days of abdominal pain. Patient states poor oral intake. Patient recently seen in the hospital ultrasound was performed which showed no evidence of gallbladder disease and no gallstones. Patient reports has had CAT scan before reportedly had pancreatitis. Patient denies fever chills. Patient has had nausea vomiting without diarrhea. Patient denies . No dysuria frequency urgency. Patient has low back pain. No referred lower extremity pain numbness tingling or weakness no reported saddle anesthesia or bladder or bowel dysfunction. Patient is unable to identify exacerbating or alleviating factors. PFSH Past Medical History Narrative Medical Anxiety depression pancreatitis ; prior substance use; nursing notes reviewed Anxiety: Yes (ptsd) Depression: Yes Diminished Hearing: No Immunizations Current: Yes Pancreatitis: Yes (PAST) Tetanus Vaccination: < 5 Years ?: Not LMP: 11/03/2017 Tubal Ligation: Yes Past Surgical History Section: Yes (x2) Social History Alcohol Use: Yes (SOCC) Tobacco Use: Yes (1PPD) Substance Use: No (HX of CRACK) Allergies-Medications (Allergen,Severity, Reaction): Coded Allergies: No Known Allergies (Verified Adverse Reaction, Unknown, 11/05/17) Reported Meds & Prescriptions Reported Meds & Active Scripts Active Prochlorperazine Maleate 10 Mg Tab 10 Mg PO Q6H PRN Ibuprofen 600 Mg Tab 600 Mg PO TID Seroquel (Quetiapine Fumarate) 100 Mg Tab 50 Mg PO BID Lamictal (Lamotrigine) 100 Mg Tab 100 Mg PO DAILY Reported Gabapentin 100 Mg Cap 100 Mg PO BID Effexor XR 24 HR (Venlafaxine HCl) 150 Mg Cap 150 Mg PO DAILY Review of Systems Except as stated in HPI: all other systems reviewed are Neg General / Constitutional: No: Fever, Chills HENT: No: Congestion Cardiovascular: No: Chest Pain or Discomfort Respiratory: No: Shortness of Breath Gastrointestinal: Positive: Abdominal Pain Genitourinary: No: Dysuria Musculoskeletal: No: Myalgias, Arthralgias Skin: No Rash Neurologic: No: Weakness Psychiatric: No: Anxiety Hematologic/Lymphatic: No: Lymph Node Enlargement Physical Exam Narrative GENERAL: Well-developed well-nourished female in no acute distress no respiratory distress SKIN: Warm and dry. HEAD: Normocephalic. EYES: No scleral icterus. No injection or drainage. NECK: Supple, trachea midline. No JVD or lymphadenopathy. CARDIOVASCULAR: Regular rate and rhythm without murmurs, gallops, or rubs. RESPIRATORY: Breath sounds equal bilaterally. No accessory muscle use. GASTROINTESTINAL: Abdomen soft, diffusely tender, nondistended. MUSCULOSKELETAL: No cyanosis, or edema. BACK: Nontender without obvious deformity. No CVA tenderness. Data Data Last Documented VS Vital Signs Date Time Temp Pulse Resp B/P (MAP) Pulse Ox O2 Delivery O2 Flow Rate FiO2 11/05/17 03:40 11/05/17 02:35 88 16 100 Room Air 11/05/17 01:26 98.8 Orders Orders Complete Blood Count With Diff (11/05/17 02:21) Comprehensive Metabolic Panel (11/05/17 02:21) Lipase (11/05/17 02:21) Lactic Acid (11/05/17 02:21) Urinalysis - C+S If Indicated (11/05/17 02:21) Iv Access Insert/Monitor (11/05/17 02:21) Ecg Monitoring (11/05/17 02:21) Oximetry (11/05/17 02:21) Ondansetron Inj (Zofran Inj) (11/05/17 02:30) Sodium Chlor 0.9% 1000 Ml Inj (Ns 1000 M (11/05/17 02:21) Sodium Chloride 0.9% Flush (Ns Flush) (11/05/17 02:30) Ed Urine Pregnancytest Poc (11/05/17 02:21) Drug Screen, Random Urine (11/05/17 02:25) Ketorolac Inj (Toradol Inj) (11/05/17 03:15) Ct Abd/Pel W/O Iv Contrast (11/05/17 ) Labs Laboratory Tests Test 11/05/17 02:30 White Blood Count 9.2 TH/MM3 Red Blood Count 5.15 MIL/MM3 Hemoglobin 14.4 GM/DL Hematocrit 43.6 % Mean Corpuscular Volume 84.6 FL Mean Corpuscular Hemoglobin 28.0 PG Mean Corpuscular Hemoglobin Concent 33.1 % Red Cell Distribution Width 13.4 % Platelet Count 201 TH/MM3 Mean Platelet Volume 9.3 FL Neutrophils (%) (Auto) 65.4 % Lymphocytes (%) (Auto) 26.7 % Monocytes (%) (Auto) 5.2 % Eosinophils (%) (Auto) 1.7 % Basophils (%) (Auto) 1.0 % Neutrophils # (Auto) 5.9 TH/MM3 Lymphocytes # (Auto) 2.5 TH/MM3 Monocytes # (Auto) 0.5 TH/MM3 Eosinophils # (Auto) 0.2 TH/MM3 Basophils # (Auto) 0.1 TH/MM3 CBC Comment DIFF FINAL Differential Comment Urine Collection Type CLEAN CATCH Urine Color YELLOW Urine Turbidity CLEAR Urine pH 5.5 Urine Specific [place] GREATER/EQUAL 1.030 Urine Protein NEG mg/dL Urine Glucose (UA) NEG mg/dL Urine Ketones NEG mg/dL Urine Occult Blood LARGE Urine Nitrite NEG Urine Bilirubin NEG Urine Urobilinogen 0.2 MG/DL Urine Leukocyte Esterase NEG Urine RBC 4-9 /hpf Urine Squamous Epithelial Cells 0-5 /hpf Urine Mucus FEW /lpf Microscopic Urinalysis Comment CULT NOT INDICATED Blood Urea Nitrogen 11 MG/DL Creatinine 0.82 MG/DL Random Glucose 83 MG/DL Total Protein 8.5 GM/DL Albumin 3.8 GM/DL Calcium Level 9.3 MG/DL Alkaline Phosphatase 93 U/L Aspartate Amino Transf (AST/SGOT) 12 U/L Alanine Aminotransferase (ALT/SGPT) 16 U/L Total Bilirubin 0.2 MG/DL Sodium Level 140 MEQ/L Potassium Level 4.2 MEQ/L Chloride Level 110 MEQ/L Carbon Dioxide Level 24.1 MEQ/L Anion Gap 6 MEQ/L Estimat Glomerular Filtration Rate 80 ML/MIN Lactic Acid Level 1.0 mmol/L Lipase 214 U/L Urine Opiates Screen NEG Urine Barbiturates Screen NEG Urine Amphetamines Screen NEG Urine Benzodiazepines Screen NEG Urine Cocaine Screen NEG Urine Cannabinoids Screen NEG MDM Medical Decision Making Medical Screen Exam Complete: Yes Emergency Medical Condition: Yes Medical Record Reviewed: Yes Interpretation(s) poc hcg: negative Lactic acid: 1.0, not elevated CBC & BMP Diagram 11/05/17 02:30 Total Protein 8.5 H, Albumin 3.8, Calcium Level 9.3, Alkaline Phosphatase 93, Aspartate Amino Transf (AST/SGOT) 12 L, Alanine Aminotransferase (ALT/SGPT) 16, Total Bilirubin 0.2 Vital Signs Date Time Temp Pulse Resp B/P (MAP) Pulse Ox O2 Delivery O2 Flow Rate FiO2 11/05/17 03:40 11/05/17 02:35 88 16 142/80 (100) 100 Room Air 11/05/17 02:30 98 11/05/17 01:26 98.8 91 18 158/108 (125) 98 UDS: negative Differential Diagnosis Abdominal pain gastritis peptic ulcer disease cholecystitis pancreatitis Narrative Course IV access obtained specimens collected and sent for resulting patient administered Zofran 4 mg IV and normal saline bolus CBC is automated differential normal lactic acid 1.0 not elevated [id number] hCG negative Patient requesting pain medicine Toradol 30 mg IV administered; urine drug screen negative At 3:49 AM informed by patient's nurse that she left AGAINST MEDICAL ADVICE and did not wait to speak with me about her concerns apparently patient was very upset because she was given Toradol 30 mg IV to address her pain and she requested specifically Dilaudid and that was not ordered for her; patient had stable vital signs normal CBC non-elevated lactic acid chemistries and urinalysis was negative [id number] hCG a soft nonfocal abdomen without guarding or rebound and no indication for Dilaudid therefore it was not ordered. Patient apparently signed out at 3:30 AM while I was in another room with a critical patient. Diagnosis Primary Impression: Left against medical advice Disposition: 07 AGAINST MEDICAL ADVICE Condition: Stable Luz Elena Ewing MD Nov 05, 2017 03:10
[2017-11-05 03:13] LABS: ALBUMIN 3.8 GM/DL (3.4-5.0); ALKALINE PHOSPHATASE 93 U/L (45-117); ALT (GPT) 16 U/L (10-53); AST (GOT) 12 U/L (15-37); BICARBONATE 24.1 MEQ/L (21.0-32.0); BLOOD UREA NITROGEN 11 MG/DL (7-18); CALCIUM 9.3 MG/DL (8.5-10.1); CHLORIDE 110 MEQ/L (98-107); CREATININE 0.82 MG/DL (0.50-1.00); GLOMERULAR FILTRATION RATE 80 ML/MIN (>89); GLUCOSE,RANDOM 83 MG/DL (74-106); SODIUM (NA) 140 MEQ/L (136-145); TOTAL BILIRUBIN ADULT 0.2 MG/DL (0.2-1.0); TOTAL PROTEIN 8.5 GM/DL (6.4-8.2)
[2017-11-05] MEDS ORDERED: KETOROLAC TROMETHAMINE 30 MG/ML (IVP) VIAL IV PUSH ONE (03:15)
== END 2017-11-05 03:30 | disposition left against medical advice (07) ==
LOC: PHED 01:22
DX: R10.9 Unspecified abdominal pain (principal); F43.10 Post-traumatic stress disorder, unspecified; Z87.19 Personal history of other diseases of the digestive system; F17.200 Nicotine dependence, unspecified, uncomplicated; Z79.899 Other long term (current) drug therapy; Z53.21 Procedure and treatment not carried out due to patient leaving prior to being seen by health care provider
CPT/HCPCS: 74176; 80053; 80307; 81001; 83605; 83690; 84703; 85025; 96361; 96374; 96375; 99284; J1885; J2405; J7030